=== PATIENT | male | born 1995 | race African-American/Black ===

== ENCOUNTER 2017-07-19 14:04 | Emergency (ER) | payer SELFPAY ==
[2017-07-19] MEDS ORDERED: ALBUTEROL 2.5 MG/3 ML NEB SOL ONE (14:32)
[2017-07-19] MEDS ORDERED: IPRATROPIUM BROM 0.5MG/2.5ML ONE (14:32)
--- NOTE | 2017-07-19 15:13 | RAD REPORT ---
EXAM DESCRIPTION: Kathrin Ji (2 Views)07/19/2017 3:00 pm CLINICAL HISTORY: Cough COMPARISON: 2012 FINDINGS: The lungs appear clear of acute infiltrate. The heart is normal size IMPRESSION: No acute abnormalities displayed
--- NOTE | 2017-07-19 15:37 | ER ---
Nurse's Notes [facility] Name: Manish Luis Jr Age: 21 yrs Sex: Male : 1995 Arrival Date: 07/19/2017 Time: 14:05 Bed 19 Private MD: Diagnosis: Acute upper respiratory infection, unspecified Presentation: 07/19 14:07 Presenting complaint: Patient states: sore throat for 2 days, diarrhea, cough, SOB for la1 one day. Transition of care: patient was not received from another setting of care. Onset of symptoms was July 19, 2017. Initial Sepsis Screen: Does the patient meet any 2 criteria? No. Patient's initial sepsis screen is negative. Does the patient have a suspected source of infection? No. Patient's initial sepsis screen is negative. Care prior to arrival: None. 14:07 Method Of Arrival: Ambulatory la1 14:07 Acuity: REYNA 4 la1 Historical: - Allergies: 14:08 PENICILLINS; la1 - Home Meds: 14:10 Albuterol Inhl [Active]; rb1 - PMHx: 14:08 Asthma; la1 - PSHx: 14:10 None; rb1 - Immunization history:: Adult Immunizations up to date. - Social history:: Smoking status: Patient/guardian denies using tobacco. Screenin:10 Abuse screen: Denies threats or abuse. Nutritional screening: No deficits noted. rb1 Tuberculosis screening: No symptoms or risk factors identified. Fall Risk None identified. Assessment: 14:10 General: Appears in no apparent distress. comfortable, slender, Behavior is calm, rb1 cooperative. Pain: Complains of pain in back Pain does not radiate. Pain currently is 2 out of 10 on a pain scale. Pain began 2 days. Neuro: Level of Consciousness is awake, alert, obeys commands, Oriented to person, place, time, situation. Cardiovascular: Capillary refill < 3 seconds is brisk in bilateral fingers. Respiratory: Airway is patent Respiratory effort is even, unlabored, Respiratory pattern is regular, symmetrical. GI: Reports diarrhea. : No signs and/or symptoms were reported regarding the genitourinary system. Derm: Skin is dry, Skin is normal, Skin temperature is warm. Musculoskeletal: Range of motion: intact in all extremities. 14:54 Reassessment: pt. went to X-ray. rb1 15:39 Reassessment: Patient appears in no apparent distress at this time. Patient and/or rb1 family updated on plan of care and expected duration. Pain level reassessed. Patient is alert, oriented x 3, equal unlabored respirations, skin warm/dry/pink. Vital Signs: 14:08 BP 123 / 74; Pulse 101; Resp 19; Temp 98.4; Pulse Ox 94% on R/A; Weight 58.97 kg; la1 Height 5 ft. 10 in. (177.80 cm); 14:54 rb1 15:04 BP 117 / 101; Pulse 99; Resp 19; Pulse Ox 100% on R/A; rb1 15:49 BP 105 / 81; Pulse 98; Resp 16; Pulse Ox 100% on R/A; rb1 14:08 Body Mass Index 18.65 (58.97 kg, 177.80 cm) la1 14:54 pt. went to x-ray [facility] ED Course: 14:05 Patient arrived in ED. as 14:07 Triage completed. la1 14:08 Arm band placed on right wrist. la1 14:10 Patient has correct armband on for positive identification. Bed in low position. Call rb1 light in reach. Side rails up X 1. Pulse ox on. NIBP on. 14:11 Valentina Elizadle, RN is Primary Nurse. rb1 14:11 Sumit Suresh PA is PHCP. cp 14:11 Jam Saeed MD is Attending Physician. cp 14:30 Strep Sent. rb1 14:30 Influenza Screen (a \T\ B) Sent. rb1 14:41 Note: PATIENT RECEIVING BREATHING TREATMENT, X RAY DELAYED. kp1 14:56 Patient moved to radiology via wheelchair. ag1 14:57 XRAY Chest Pa And Lat (2 Views) In Process Unspecified. EDMS 15:49 No provider procedures requiring assistance completed. Patient did not have IV access rb1 during this emergency room visit. 15:55 Throat Culture Sent. rb1 Administered Medications: 14:36 Drug: Albuterol 2.5 mg Route: Inhalation; rb1 14:36 Drug: AtroVENT Aerosol 0.5 mg Route: Inhalation; rb1 Outcome: 15:36 Discharge ordered by . cp 15:49 Patient left the ED. rb1 15:49 Discharged to home ambulatory, with significant other. rb1 15:49 Condition: stable 15:49 Discharge instructions given to patient, Instructed on discharge instructions, follow up and referral plans. medication usage, Demonstrated understanding of instructions, follow-up care, medications, Prescriptions given X 3. Signatures: Dispatcher [employer] Margarita Quevedo Lee RN RN la1 Rica Mansfield ag1 Sumit Suresh PA PA cp Barber, Rebecca, RN RN rb1 Aimee, Nicole kp1
--- NOTE | 2017-07-19 15:37 | EDPHYS ---
Physician Documentation [facility] Name: Manish Luis Jr Age: 21 yrs Sex: Male : 1995 Arrival Date: 07/19/2017 Time: 14:05 Bed 19 Private MD: ED Physician Jam Saeed HPI: 07/19 14:25 This 21 yrs old Black Male presents to ER via Ambulatory with complaints of Flu cp Symptoms, Asthma Exacerbation. 14:25 The patient or guardian reports cough, that is intermittent. Onset: The cp symptoms/episode began/occurred 2 day(s) ago. Associated signs and symptoms: Pertinent positives: diarrhea, sore throat, shortness of breath, Pertinent negatives: chest pain, fever, vomiting. 14:25 Severity of symptoms: in the emergency department the symptoms are unchanged despite cp home interventions. Historical: - Allergies: 14:08 PENICILLINS; la1 - Home Meds: 14:10 Albuterol Inhl [Active]; rb1 - PMHx: 14:08 Asthma; la1 - PSHx: 14:10 None; rb1 - Immunization history:: Adult Immunizations up to date. - Social history:: Smoking status: Patient/guardian denies using tobacco. ROS: 14:30 Constitutional: Negative for body aches, chills, fever, poor PO intake. cp 14:30 Eyes: Negative for injury, pain, redness, and discharge. cp 14:30 ENT: Positive for rhinorrhea, sore throat, Negative for drainage from ear(s), ear pain, difficulty swallowing, difficulty handling secretions. 14:30 Cardiovascular: Negative for chest pain, edema. 14:30 Skin: Negative for cellulitis, rash. 14:30 Neuro: Negative for altered mental status, headache, weakness. 14:30 Respiratory: Positive for cough, shortness of breath. cp 14:30 Abdomen/GI: Positive for diarrhea, Negative for abdominal pain, nausea and vomiting, cp constipation. 14:30 All other systems are negative. Exam: 14:38 Constitutional: The patient appears in no acute distress, alert, awake, non-toxic, well cp developed, well nourished. 14:38 Head/Face: Normocephalic, atraumatic. cp 14:38 Eyes: Periorbital structures: appear normal, Conjunctiva: normal, no exudate, no injection, Sclera: no appreciated abnormality, Lids and lashes: appear normal, bilaterally. 14:38 ENT: External ear(s): are unremarkable, Ear canal(s): are normal, clear, TM's: dullness, bilaterally, Nose: is normal, Mouth: Lips: moist, Oral mucosa: moist, Posterior pharynx: Airway: no evidence of obstruction, patent, Tonsils: with erythema, no enlargement, no exudate, Uvula: midline, swelling, is not appreciated, erythema, that is mild, exudate, is not appreciated. 14:38 Neck: ROM/movement: is normal, is supple, without pain, no range of motions limitations, no meningismus, no nuchal rigidity, Lymph nodes: no appreciated lymphadenopathy. 14:38 Chest/axilla: Inspection: normal, Palpation: is normal, no crepitus, no tenderness. 14:38 Cardiovascular: Rate: tachycardic, Rhythm: regular. 14:38 Respiratory: the patient does not display signs of respiratory distress, Respirations: normal, no use of accessory muscles, no retractions, no splinting, no tachypnea, labored breathing, is not present, Breath sounds: bronchial sounds, that are mild, are heard diffusely, decreased breath sounds, that are mild, are scattered, stridor, is not appreciated, wheezing: is not appreciated. 14:38 Abdomen/GI: Exam negative for discomfort, distension, guarding, Inspection: abdomen appears normal. 14:38 Back: pain, is absent, ROM is normal. 14:38 Skin: cellulitis, is not appreciated, no rash present. 14:38 Neuro: Orientation: to person, place \T\ time. Mentation: is normal, Cerebellar function: is grossly normal, Motor: is normal, Sensation: is normal. Vital Signs: 14:08 BP 123 / 74; Pulse 101; Resp 19; Temp 98.4; Pulse Ox 94% on R/A; Weight 58.97 kg; la1 Height 5 ft. 10 in. (177.80 cm); 14:54 rb1 15:04 BP 117 / 101; Pulse 99; Resp 19; Pulse Ox 100% on R/A; rb1 15:49 BP 105 / 81; Pulse 98; Resp 16; Pulse Ox 100% on R/A; rb1 14:08 Body Mass Index 18.65 (58.97 kg, 177.80 cm) la1 14:54 pt. went to x-ray rb1 MDM: 14:11 Patient medically screened. cp 15:00 Differential diagnosis: bronchitis, flu, URI. cp 15:35 Data reviewed: vital signs, nurses notes, lab test result(s), radiologic studies, plain cp films. 15:35 Test interpretation: by ED physician or midlevel provider: plain radiologic studies. cp Counseling: I had a detailed discussion with the patient and/or guardian regarding: the historical points, exam findings, and any diagnostic results supporting the discharge/admit diagnosis, lab results, radiology results, to return to the emergency department if symptoms worsen or persist or if there are any questions or concerns that arise at home. Response to treatment: the patient's symptoms have mildly improved after treatment, and as a result, I will discharge patient. 07/19 14:19 Order name: Influenza Screen (a \T\ B); Complete Time: 15:03 07/19 15:03 Interpretation: Reviewed. 07/19 14:19 Order name: Strep; Complete Time: 15:03 07/19 15:35 Interpretation: Reviewed. 07/19 14:19 Order name: XRAY Chest Pa And Lat (2 Views); Complete Time: 15:34 07/19 14:59 Order name: Throat Culture EDMS Administered Medications: 14:36 Drug: Albuterol 2.5 mg Route: Inhalation; rb1 14:36 Drug: AtroVENT Aerosol 0.5 mg Route: Inhalation; rb1 Disposition: 07/19/17 15:36 Discharged to Home. Impression: Acute upper respiratory infection, unspecified. - Condition is Stable. - Discharge Instructions: Upper Respiratory Infection, Adult. - Prescriptions for Tessalon Perles 100 mg Oral Capsule - take 1 capsule by ORAL route every 8 hours As needed; 15 capsule. Prednisone 20 mg Oral Tablet - take 2 tablet by ORAL route once daily for 5 days; 10 tablet. Albuterol Sulfate 90 mcg/actuation - inhale 1-2 puff by INHALATION route every 4-6 hours; 1 Inhaler. - Medication Reconciliation Form, Thank You Letter, Antibiotic Education, Prescription Opioid Use, Work release form form. - Follow up: Private Physician; When: 2 - 3 days; Reason: Recheck today's complaints. - Problem is new. - Symptoms have improved. Signatures: Dispatcher [employer] Francis Arndt RN RN la1 Sumit Suresh PA PA cp Barber, Rebecca RN RN rb1 Corrections: (The following items were deleted from the chart) 07/20 12:07/19 14:30 Respiratory: Positive for cough, cp cp 07/21 11:07/19 14:30 Abdomen/GI: Negative for abdominal pain, vomiting, diarrhea, constipation, cp cp 07/21 11:07/19 14:30 All other systems are negative, cp cp
== END 2017-07-19 15:49 | disposition home or self-care (01) ==
LOC: ER 14:04
DX: J06.9 Acute upper respiratory infection, unspecified (principal); J45.909 Unspecified asthma, uncomplicated; Z88.0 Allergy status to penicillin
CPT/HCPCS: 71046; 87070; 87081; 87804; 99284

== ENCOUNTER 2018-01-16 20:13 | Emergency (ER) | payer SELFPAY ==
--- NOTE | 2018-01-16 21:20 | RAD REPORT ---
EXAM DESCRIPTION: RAD - Chest Pa And Lat (2 Views) - 01/16/2018 8:41 pm CLINICAL HISTORY: Productive cough, asthma history, congestion COMPARISON: July 19 TECHNIQUE: PA and lateral views of the chest were obtained. FINDINGS: The lungs are clear of a focal consolidation. No significant peribronchial thickening. Darren g markings are similar to comparison. Heart size is normal and central vasculature is within normal limits. No pleural effusion or pneumothorax seen. No acute bony finding noted. No aortic abnormal ity. IMPRESSION: No acute cardiopulmonary process. No significant interval change.
[2018-01-16] MEDS ORDERED: IPRATROPIUM BROM 0.5MG/2.5ML ONE (21:40)
[2018-01-16] MEDS ORDERED: predniSONE 20 MG TAB ONE ×2 (21:40→22:53)
[2018-01-16] MEDS ORDERED: AZITHROMYCIN 250 MG TAB ONE (21:40)
[2018-01-16] MEDS ORDERED: ALBUTEROL 2.5 MG/3 ML NEB SOL ONE ×2 (21:40→22:53)
--- NOTE | 2018-01-16 22:48 | EDPHYS ---
Physician Documentation [facility] Name: Manish Luis Jr Age: 22 yrs Sex: Male : 1995 Arrival Date: 01/16/2018 Time: 20:15 Bed 25 Private MD: ED Physician Sumit Qiu HPI: 01/16 22:42 This 22 yrs old Black Male presents to ER via Ambulatory with complaints of ASTHMA. dory 22:42 The patient has shortness of breath at rest, with light activity. Onset: The dory symptoms/episode began/occurred 3 day(s) ago. Duration: The symptoms are continuous, and are steadily getting worse. The patient's shortness of breath has no apparent modifying factors. The patient or guardian reports cough. Modifying factors: The symptoms are alleviated by nothing. the symptoms are aggravated by cold environment. Associated signs and symptoms: The patient has no apparent associated signs or symptoms. Severity of symptoms: At their worst the symptoms were mild moderate in the emergency department the symptoms are unchanged. Historical: - Allergies: 20:25 PENICILLINS; ak1 - Home Meds: 20:25 Albuterol Inhl [Active]; ak1 - PMHx: 20:25 Asthma; ak1 - PSHx: 20:25 None; ak1 - Immunization history:: Adult Immunizations unknown. - Social history:: Smoking status: Patient/guardian denies using tobacco. - Ebola Screening: : No symptoms or risks identified at this time. - Family history:: not pertinent. ROS: 22:42 Constitutional: Negative for fever, chills, and weight loss, Eyes: Negative for injury, dory pain, redness, and discharge, ENT: Negative for injury, pain, and discharge, Neck: Negative for injury, pain, and swelling, Cardiovascular: Negative for chest pain, palpitations, and edema, Abdomen/GI: Negative for abdominal pain, nausea, vomiting, diarrhea, and constipation, Back: Negative for injury and pain, : Negative for injury, bleeding, discharge, and swelling, MS/Extremity: Negative for injury and deformity, Skin: Negative for injury, rash, and discoloration, Neuro: Negative for headache, weakness, numbness, tingling, and seizure, Psych: Negative for depression, anxiety, suicide ideation, homicidal ideation, and hallucinations, Allergy/Immunology: Negative for hives, rash, and allergies, Endocrine: Negative for neck swelling, polydipsia, polyuria, polyphagia, and marked weight changes, Hematologic/Lymphatic: Negative for swollen nodes, abnormal bleeding, and unusual bruising. 22:42 Respiratory: Positive for cough, shortness of breath, wheezing, expiratory. Exam: 22:42 Constitutional: This is a well developed, well nourished patient who is awake, alert, dory and in no acute distress. Head/Face: Normocephalic, atraumatic. Eyes: Pupils equal round and reactive to light, extra-ocular motions intact. Lids and lashes normal. Conjunctiva and sclera are non-icteric and not injected. Cornea within normal limits. Periorbital areas with no swelling, redness, or edema. ENT: Nares patent. No nasal discharge, no septal abnormalities noted. Tympanic membranes are normal and external auditory canals are clear. Oropharynx with no redness, swelling, or masses, exudates, or evidence of obstruction, uvula midline. Mucous membranes moist. Neck: Trachea midline, no thyromegaly or masses palpated, and no cervical lymphadenopathy. Supple, full range of motion without nuchal rigidity, or vertebral point tenderness. No Meningismus. Chest/axilla: Normal chest wall appearance and motion. Nontender with no deformity. No lesions are appreciated. Cardiovascular: Regular rate and rhythm with a normal S1 and S2. No gallops, murmurs, or rubs. Normal PMI, no JVD. No pulse deficits. Abdomen/GI: Soft, non-tender, with normal bowel sounds. No distension or tympany. No guarding or rebound. No evidence of tenderness throughout. Back: No spinal tenderness. No costovertebral tenderness. Full range of motion. Male : Normal genitalia with no discharge or lesions. Skin: Warm, dry with normal turgor. Normal color with no rashes, no lesions, and no evidence of cellulitis. MS/ Extremity: Pulses equal, no cyanosis. Neurovascular intact. Full, normal range of motion. Neuro: Awake and alert, GCS 15, oriented to person, place, time, and situation. Cranial nerves II-XII grossly intact. Motor strength 5/5 in all extremities. Sensory grossly intact. Cerebellar exam normal. Normal gait. Psych: Awake, alert, with orientation to person, place and time. Behavior, mood, and affect are within normal limits. 22:42 Respiratory: the patient does not display signs of respiratory distress, Respirations: normal, no acute changes, Breath sounds: bronchial sounds, decreased breath sounds, rhonchi, wheezing: expiratory Respiratory rate: 20 Vital Signs: 20:25 BP 138 / 80; Pulse 78; Resp 18; Temp 97.8; Pulse Ox 98% on R/A; Weight 63.5 kg (R); ak1 Height 5 ft. 9 in. (175.26 cm) (R); Pain 0/10; 22:51 BP 125 / 78; Pulse 58; Resp 18; Pulse Ox 100% on R/A; Pain 0/10; mg2 23:28 BP 120 / 80; Pulse 78; Resp 18; Pulse Ox 100% on R/A; mg2 20:25 Body Mass Index 20.67 (63.50 kg, 175.26 cm) ak1 MDM: 21:23 Patient medically screened. [facility] 22:44 Data reviewed: vital signs, nurses notes, radiologic studies, plain films. [facility] 01/16 20:26 Order name: XRAY Chest Pa And Lat (2 Views); Complete Time: 22:41 ak1 Administered Medications: 21:37 Drug: Albuterol 5 mg Route: Inhalation; mg2 23:28 Follow up: Response: No adverse reaction; Marked relief of symptoms mg2 21:37 Drug: AtroVENT Aerosol 0.5 mg Route: Inhalation; mg2 23:28 Follow up: Response: No adverse reaction; Marked relief of symptoms mg2 21:37 Drug: predniSONE 40 mg Route: PO; mg2 23:27 Follow up: Response: No adverse reaction; Marked relief of symptoms mg2 21:37 Drug: Zithromax 500 mg Route: PO; mg2 23:27 Follow up: Response: No adverse reaction; Marked relief of symptoms mg2 22:49 Drug: predniSONE 20 mg Route: PO; mg2 23:27 Follow up: Response: No adverse reaction; Marked relief of symptoms mg2 22:50 Drug: Albuterol 5 mg Route: Inhalation; mg2 23:27 Follow up: Response: No adverse reaction; Marked relief of symptoms mg2 23:02 Drug: Rocephin (cefTRIAXone) 1 grams Route: IM; Site: left gluteus; mg2 23:27 Follow up: Response: No adverse reaction mg2 Disposition: 01/16/18 22:47 Discharged to Home. Impression: Asthma, Acute upper respiratory infection, unspecified, Bronchitis, not specified as acute or chronic. - Condition is Stable. - Discharge Instructions: Acute Bronchitis, Adult, Asthma, Adult, How to Use an Inhaler, Upper Respiratory Infection, Adult, Cool Mist Vaporizer, Upper Respiratory Infection, Adult, [id number], Asthma, Adult, [id number], Cough, Adult. - Prescriptions for Albuterol Sulfate 2.5 mg /3 mL (0.083 %) Inhalation Solution for Nebulization - inhale 1 unit by NEBULIZATION route every 8 hours As needed; 1 box. Prednisone 20 mg Oral Tablet - take 2 tablet by ORAL route once daily for 5 days; 10 tablet. Albuterol Sulfate 90 mcg/actuation - inhale 1-2 puff by INHALATION route every 4-6 hours; 1 Inhaler. Zithromax 500 mg Oral Tablet - take 1 tablet by ORAL route once daily for 5 days; 5 tablet. - Medication Reconciliation Form, Thank You Letter, Antibiotic Education, Prescription Opioid Use form. - Follow up: Private Physician; When: 2 - 3 days; Reason: Recheck today's complaints, Continuance of care, Re-evaluation by your physician. - Problem is new. - Symptoms have improved. Signatures: Dispatcher [employer] EDSumit Chapin MD MD cha Krenek, Amber RN RN ak1 Curt Parker RN RN mg2 Corrections: (The following items were deleted from the chart) 23:29 22:47 01/16/2018 22:47 Discharged to Home. Impression: Asthma; Acute upper respiratory mg2 infection, unspecified; Bronchitis, not specified as acute or chronic. Condition is Stable. Forms are Medication Reconciliation Form, Thank You Letter, Antibiotic Education, Prescription Opioid Use. Follow up: Private Physician; When: 2 - 3 days; Reason: Recheck today's complaints, Continuance of care, Re-evaluation by your physician. Problem is new. Symptoms have improved. dory
--- NOTE | 2018-01-16 22:48 | ER ---
Nurse's Notes [facility] Name: Manish Luis Jr Age: 22 yrs Sex: Male : 1995 Arrival Date: 01/16/2018 Time: 20:15 Bed 25 Private MD: Diagnosis: Asthma;Acute upper respiratory infection, unspecified;Bronchitis, not specified as acute or chronic Presentation: 01/16 20:24 Presenting complaint: Patient states: productive cough X2 days [employer]. pt c/o SOB today. ak1 Transition of care: patient was not received from another setting of care. Onset of symptoms is unknown. Risk Assessment: Do you want to hurt yourself or someone else? Patient reports no desire to harm self or others. Initial Sepsis Screen: Does the patient meet any 2 criteria? No. Patient's initial sepsis screen is negative. Does the patient have a suspected source of infection? No. Patient's initial sepsis screen is negative. Care prior to arrival: None. 20:24 Method Of Arrival: Ambulatory ak1 20:24 Acuity: REYNA 3 ak1 Triage Assessment: 20:25 General: Appears in no apparent distress. Behavior is calm, cooperative, no resp ak1 distress noted in triage. . 20:26 Pain: Denies pain. ak1 Historical: - Allergies: 20:25 PENICILLINS; ak1 - Home Meds: 20:25 Albuterol Inhl [Active]; ak1 - PMHx: 20:25 Asthma; ak1 - PSHx: 20:25 None; ak1 - Immunization history:: Adult Immunizations unknown. - Social history:: Smoking status: Patient/guardian denies using tobacco. - Ebola Screening: : No symptoms or risks identified at this time. - Family history:: not pertinent. Screenin:26 Abuse screen: Denies threats or abuse. Denies injuries from another. Nutritional ak1 screening: No deficits noted. Tuberculosis screening: No symptoms or risk factors identified. Fall Risk None identified. Assessment: 22:30 General: Appears in no apparent distress. comfortable, Behavior is calm, cooperative. mg2 Respiratory: Airway is patent Respiratory effort is even, unlabored, Respiratory pattern is regular, symmetrical, Breath sounds with wheezes. 23:25 Pain: Denies pain. mg2 23:26 Reassessment: Patient appears in no apparent distress at this time. Patient and/or mg2 family updated on plan of care and expected duration. Pain level reassessed. Patient is alert, oriented x 3, equal unlabored respirations, skin warm/dry/pink. Respiratory: Breath sounds are clear. Vital Signs: 20:25 BP 138 / 80; Pulse 78; Resp 18; Temp 97.8; Pulse Ox 98% on R/A; Weight 63.5 kg (R); ak1 Height 5 ft. 9 in. (175.26 cm) (R); Pain 0/10; 22:51 BP 125 / 78; Pulse 58; Resp 18; Pulse Ox 100% on R/A; Pain 0/10; mg2 23:28 BP 120 / 80; Pulse 78; Resp 18; Pulse Ox 100% on R/A; mg2 20:25 Body Mass Index 20.67 (63.50 kg, 175.26 cm) ak1 ED Course: 20:15 Patient arrived in ED. es 20:25 Triage completed. ak1 20:25 Arm band placed on Patient placed in waiting room, Patient notified of wait time. ak1 20:26 Patient has correct armband on for positive identification. ak1 20:40 XRAY Chest Pa And Lat (2 Views) In Process Unspecified. EDMS 21:19 Sumit Qiu MD is Attending Physician. dory 21:19 Curt Parker, SANYA is Primary Nurse. mg2 23:26 No provider procedures requiring assistance completed. Patient did not have IV access mg2 during this emergency room visit. Administered Medications: 21:37 Drug: Albuterol 5 mg Route: Inhalation; mg2 23:28 Follow up: Response: No adverse reaction; Marked relief of symptoms mg2 21:37 Drug: AtroVENT Aerosol 0.5 mg Route: Inhalation; mg2 23:28 Follow up: Response: No adverse reaction; Marked relief of symptoms mg2 21:37 Drug: predniSONE 40 mg Route: PO; mg2 23:27 Follow up: Response: No adverse reaction; Marked relief of symptoms mg2 21:37 Drug: Zithromax 500 mg Route: PO; mg2 23:27 Follow up: Response: No adverse reaction; Marked relief of symptoms mg2 22:49 Drug: predniSONE 20 mg Route: PO; mg2 23:27 Follow up: Response: No adverse reaction; Marked relief of symptoms mg2 22:50 Drug: Albuterol 5 mg Route: Inhalation; mg2 23:27 Follow up: Response: No adverse reaction; Marked relief of symptoms mg2 23:02 Drug: Rocephin (cefTRIAXone) 1 grams Route: IM; Site: left gluteus; mg2 23:27 Follow up: Response: No adverse reaction mg2 Outcome: 22:47 Discharge ordered by . dory 23:28 Discharged to home ambulatory, with family. mg2 23:28 Condition: stable 23:28 Discharge instructions given to patient, family, Instructed on discharge instructions, follow up and referral plans. medication usage, Demonstrated understanding of instructions, follow-up care, medications, Prescriptions given X 4. 23:29 Patient left the ED. mg2 Signatures: Dispatcher [employer] EDAR Sumit Qiu MD MD cha Salyer, Shivani Rock RN RN ak1 Curt Parker RN RN mg2
[2018-01-16] MEDS ORDERED: WATER FOR INJ,STERILE 10 ML ONE (23:00)
[2018-01-16] MEDS ORDERED: CEFTRIAXONE 1000 MG/VIAL ONE (23:00)
== END 2018-01-16 23:29 | disposition home or self-care (01) ==
LOC: ER 20:13
DX: J06.9 Acute upper respiratory infection, unspecified (principal); J40 Bronchitis, not specified as acute or chronic; J45.909 Unspecified asthma, uncomplicated; Z88.0 Allergy status to penicillin
CPT/HCPCS: 71046; 96372; 99284; J7512

== ENCOUNTER 2019-06-20 17:32 | Emergency (ER) | payer SELFPAY ==
--- NOTE | 2019-06-20 18:11 | ER ---
Nurse's Notes [facility] Name: Manish Luis Jr Age: 23 yrs Sex: Male : 1995 Arrival Date: 06/20/2019 Time: 17:33 Bed 6 Private MD: Diagnosis: Acute pharyngitis Presentation: 06/19 17:43 Chief complaint: Patient states: SORE THROAT x2 DAY. Coronavirus screen: Patient denies bp fever greater than 100.4F, cough, shortness of breath, or difficulty breathing. Ebola Screen: No symptoms or risks identified at this time. Initial Sepsis Screen: Does the patient meet any 2 criteria? No. Patient's initial sepsis screen is negative. Does the patient have a suspected source of infection? No. Patient's initial sepsis screen is negative. Risk Assessment: Do you want to hurt yourself or someone else? Patient reports no desire to harm self or others. 17:43 Method Of Arrival: Ambulatory bp 17:43 Acuity: REYNA 5 bp Triage Assessment: 17:46 General: Appears in no apparent distress. comfortable, Behavior is calm, cooperative, bp appropriate for age. Pain: Denies pain. EENT: Reports pain when swallowing. Neuro: No deficits noted. Cardiovascular: No deficits noted. Respiratory: No deficits noted. GI: No signs and/or symptoms were reported involving the gastrointestinal system. : No signs and/or symptoms were reported regarding the genitourinary system. Derm: No deficits noted. Musculoskeletal: No deficits noted. Historical: - Allergies: 17:46 PENICILLINS; bp - Home Meds: 17:46 Albuterol Inhl [Active]; bp - PMHx: 17:46 Asthma; bp - Immunization history:: Adult Immunizations up to date. - Social history:: Smoking status: Patient denies any tobacco usage or history of. Screenin:48 Abuse screen: Denies threats or abuse. Denies injuries from another. Nutritional bp screening: No deficits noted. Tuberculosis screening: No symptoms or risk factors identified. Fall Risk None identified. Assessment: 17:47 General: SEE TRIAGE NOTE. Respiratory: Airway is patent Respiratory effort is even, bp unlabored, Breath sounds are clear bilaterally. EENT: Throat is reddened bilaterally. 18:16 Reassessment: PT D/C HOME AMBULATORY, DX WITH PHARYNGITIS. bp Vital Signs: 17:43 BP 128 / 81; Pulse 95; Resp 16; Temp 98.8; Pulse Ox 100% ; Weight 72.57 kg; Height 5 bp ft. 8 in. (172.72 cm); 18:15 BP 117 / 78; Pulse 90; Resp 17; Pulse Ox 99% ; bp 17:43 Body Mass Index 24.33 (72.57 kg, 172.72 cm) bp ED Course: 17:33 Patient arrived in ED. as 17:40 Taiwo Villalpando, RN is Primary Nurse. bp 17:45 Triage completed. bp 17:47 Arm band placed on. bp 17:48 Nicolás Nur NP is PHCP. pm1 17:48 Bob Oden MD is Attending Physician. pm1 17:48 Patient has correct armband on for positive identification. Bed in low position. Call bp light in reach. Side rails up X2. 18:16 No provider procedures requiring assistance completed. Patient did not have IV access bp during this emergency room visit. Administered Medications: No medications were administered Outcome: 18:10 Discharge ordered by MD. pm1 18:16 Discharged to home ambulatory. bp 18:16 Condition: stable 18:16 Discharge instructions given to patient, Instructed on discharge instructions, follow up and referral plans. medication usage, Demonstrated understanding of instructions, follow-up care, medications, Prescriptions given X 1. 18:20 Patient left the ED. bp Signatures: Margarita Adamson as Nicolás Nur NP [employer] ASSEMBLER pm1 Taiwo Villalpando, RN RN bp
--- NOTE | 2019-06-20 18:11 | EDPHYS ---
Physician Documentation [facility] Name: Manish Luis Jr Age: 23 yrs Sex: Male : 1995 Arrival Date: 06/20/2019 Time: 17:33 Bed 6 Private MD: ED Physician Bob Oden HPI: 06/19 18:09 This 23 yrs old Black Male presents to ER via Ambulatory with complaints of Sore Throat.pm1 18:09 The patient presents with sore throat. The patient describes throat pain as raw, pm1 scratchy. Onset: The symptoms/episode began/occurred 2 day(s) ago. Severity of symptoms: in the emergency department the symptoms are actually worse. Modifying factors: The symptoms are alleviated by over the counter medications, NSAIDs, Tylenol, the symptoms are aggravated by swallowing, Patient's oral intake status: good unaware of sick contact. Associated signs and symptoms: Pertinent positives: fever, Pertinent negatives cough, shortness of breath, vomiting. It is unknown whether or not the patient has recently seen a physician. Historical: - Allergies: 17:46 PENICILLINS; bp - Home Meds: 17:46 Albuterol Inhl [Active]; bp - PMHx: 17:46 Asthma; bp - Immunization history:: Adult Immunizations up to date. - Social history:: Smoking status: Patient denies any tobacco usage or history of. ROS: 18:09 Neck: Negative for injury, pain, and swelling, Cardiovascular: Negative for chest pain, pm1 palpitations, and edema, Respiratory: Negative for shortness of breath, cough, wheezing, and pleuritic chest pain, Abdomen/GI: Negative for abdominal pain, nausea, vomiting, diarrhea, and constipation, Back: Negative for injury and pain, MS/Extremity: Negative for injury and deformity, Skin: Negative for injury, rash, and discoloration, Neuro: Negative for headache, weakness, numbness, tingling, and seizure. 18:09 Constitutional: Positive for fever, Negative for poor PO intake. 18:09 ENT: Positive for sore throat, Negative for ear pain. Exam: 18:09 Constitutional: This is a well developed, well nourished patient who is awake, alert, pm1 and in no acute distress. Head/Face: Normocephalic, atraumatic. 18:09 Neck: Trachea midline, no thyromegaly or masses palpated, and no cervical lymphadenopathy. Supple, full range of motion without nuchal rigidity, or vertebral point tenderness. No Meningismus. Chest/axilla: Normal chest wall appearance and motion. Nontender with no deformity. No lesions are appreciated. Cardiovascular: Regular rate and rhythm with a normal S1 and S2. No gallops, murmurs, or rubs. Normal PMI, no JVD. No pulse deficits. Respiratory: Lungs have equal breath sounds bilaterally, clear to auscultation and percussion. No rales, rhonchi or wheezes noted. No increased work of breathing, no retractions or nasal flaring. Abdomen/GI: Soft, non-tender, with normal bowel sounds. No distension or tympany. No guarding or rebound. No evidence of tenderness throughout. Back: No spinal tenderness. No costovertebral tenderness. Full range of motion. Skin: Warm, dry with normal turgor. Normal color with no rashes, no lesions, and no evidence of cellulitis. MS/ Extremity: Pulses equal, no cyanosis. Neurovascular intact. Full, normal range of motion. 18:09 ENT: External ear(s): are unremarkable, Ear canal(s): are normal, TM's: are normal, Nose: is normal, Mouth: is normal, Posterior pharynx: Tonsils: bilaterally enlarged, with erythema, with exudate, no ulcerations, erythema, that is moderate, peritonsillar mass, is not appreciated, pooling of secretions, is not appreciated. 18:09 Neuro: Exam negative for acute changes, Orientation: is normal, Motor: moves all fours, Gait: is steady, at a normal pace, without difficulty. Vital Signs: 17:43 BP 128 / 81; Pulse 95; Resp 16; Temp 98.8; Pulse Ox 100% ; Weight 72.57 kg; Height 5 bp ft. 8 in. (172.72 cm); 18:15 BP 117 / 78; Pulse 90; Resp 17; Pulse Ox 99% ; bp 17:43 Body Mass Index 24.33 (72.57 kg, 172.72 cm) bp MDM: 18:04 Patient medically screened. pm1 18:09 Data reviewed: vital signs. Data interpreted: Pulse oximetry: on room air is 100 %. pm1 Interpretation: normal. Counseling: I had a detailed discussion with the patient and/or guardian regarding: the historical points, exam findings, and any diagnostic results supporting the discharge/admit diagnosis, the need for outpatient follow up, to return to the emergency department if symptoms worsen or persist or if there are any questions or concerns that arise at home. 06/19 18:09 Order name: Strep pm1 Administered Medications: No medications were administered Disposition: 18:31 Co-signature as Attending Physician, Bob Oden MD I agree with the assessment and kdr plan of care. Disposition: 06/20/19 18:10 Discharged to Home. Impression: Acute pharyngitis. - Condition is Stable. - Discharge Instructions: Pharyngitis. - Prescriptions for Zithromax Z- Horacio 250 mg Oral Tablet - take 1 tablet by ORAL route as directed for 5 days Day 1 - take two (2) tablets one time. Day 2, 3, 4 , 5 take one (1) tablet once daily.; 6 tablet. - Work release form, Medication Reconciliation Form, Thank You Letter, Antibiotic Education, Prescription Opioid Use form. - Follow up: Emergency Department; When: As needed; Reason: Worsening of condition. Follow up: Private Physician; When: 2 - 3 days; Reason: Recheck today's complaints, Continuance of care, Re-evaluation by your physician. - Problem is new. - Symptoms have improved. Signatures: Dispatcher [employer] EDMS Bob Oden MD MD [facility] Nicolás Nur, AUTOMATIC RIVETING MACHINE OPERATOR AUTOMATIC RIVETING MACHINE OPERATOR pm1 Taiwo Villalpando, RN RN bp Corrections: (The following items were deleted from the chart) 18:20 18:10 06/20/2019 18:10 Discharged to Home. Impression: Acute pharyngitis. Condition is bp Stable. Forms are Medication Reconciliation Form, Thank You Letter, Antibiotic Education, Prescription Opioid Use. Follow up: Emergency Department; When: As needed; Reason: Worsening of condition. Follow up: Private Physician; When: 2 - 3 days; Reason: Recheck today's complaints, Continuance of care, Re-evaluation by your physician. Problem is new. Symptoms have improved. pm1
[2019-06-20 18:27] VITALS: TEMP 98.8
[2019-06-20 18:28] VITALS: BP 117/78; O2SAT 99
== END 2019-06-20 18:20 | disposition home or self-care (01) ==
LOC: ER 17:32
DX: J02.9 Acute pharyngitis, unspecified (principal); Z88.0 Allergy status to penicillin; J45.909 Unspecified asthma, uncomplicated
CPT/HCPCS: 87070; 87081; 99282

== ENCOUNTER 2019-12-16 09:16 | Emergency (ER) | payer SELFPAY ==
--- NOTE | 2019-12-16 09:52 | ER ---
Nurse's Notes [facility] Name: Manish Luis Jr Age: 24 yrs Sex: Male : 1995 Arrival Date: 12/16/2019 Time: :19 Bed 6 Private MD: Diagnosis: Acute pharyngitis Presentation: 12/15 09:38 Chief complaint: Patient states: sore throat X 2 days, fever at night. Coronavirus iw screen: At this time, the client does not indicate any symptoms associated with coronavirus-19. Ebola Screen: Patient negative for fever greater than or equal to 101.5 degrees Fahrenheit, and additional compatible Ebola Virus Disease symptoms Patient denies exposure to infectious person. Patient denies travel to an Ebola-affected area in the 21 days before illness onset. No symptoms or risks identified at this time. Initial Sepsis Screen: Does the patient meet any 2 criteria? No. Patient's initial sepsis screen is negative. Does the patient have a suspected source of infection? No. Patient's initial sepsis screen is negative. Risk Assessment: Do you want to hurt yourself or someone else? Patient reports no desire to harm self or others. Onset of symptoms was December 14, 2019. 09:38 Method Of Arrival: Ambulatory iw 09:38 Acuity: REYNA 4 iw Historical: - Allergies: 09:39 PENICILLINS; iw - Home Meds: 09:39 Albuterol Inhl [Active]; iw - PMHx: 09:39 Asthma; iw - PSHx: 09:39 None; iw - Immunization history:: Adult Immunizations not up to date. - Social history:: Smoking status: Patient reports the use of cigarette tobacco products, denies chronic smoking, but will smoke occasionally. Screenin:42 Abuse screen: Denies threats or abuse. Nutritional screening: No deficits noted. em Tuberculosis screening: No symptoms or risk factors identified. Fall Risk None identified. Assessment: 09:37 General: Appears in no apparent distress. comfortable, Behavior is calm, cooperative, em appropriate for age, Denies fever. Pain: Complains of pain in throat. Neuro: Level of Consciousness is awake, alert, obeys commands, Oriented to person, place, time, situation, Appropriate for age. Cardiovascular: Capillary refill < 3 seconds Patient's skin is warm and dry. Respiratory: Reports cough that is Airway is patent Respiratory effort is even, unlabored, Respiratory pattern is regular, symmetrical, Breath sounds are clear bilaterally. Denies shortness of breath. GI: Abdomen is flat. EENT: Oral mucosa is moist. Throat is clear is pink Reports difficulty swallowing since 2 days ago. Derm: Skin is intact, is healthy with good turgor, Skin is pink, warm \T\ dry. Musculoskeletal: Capillary refill < 3 seconds, Range of motion: intact in all extremities. 10:06 Reassessment: Patient appears in no apparent distress at this time. No changes from sv previously documented assessment. Patient and/or family updated on plan of care and expected duration. Pain level reassessed. Patient is alert, oriented x 3, equal unlabored respirations, skin warm/dry/pink. Vital Signs: 09:38 BP 110 / 78; Pulse 91; Resp 16; Temp 98.1; Pulse Ox 97% on R/A; Weight 81.65 kg; Height iw 5 ft. 10 in. (177.80 cm); 09:38 Body Mass Index 25.83 (81.65 kg, 177.80 cm) iw ED Course: 09:19 Patient arrived in ED. mr 09:22 Evette Newton FNP-C [facility]. kb 09:22 Bob Oden MD is Attending Physician. kb 09:26 Myriam Alfonso, SANYA is Primary Nurse. sv 09:37 Strep swab sent to lab. em 09:39 Triage completed. iw 09:40 Arm band placed on. iw 09:42 Patient has correct armband on for positive identification. Bed in low position. Call em light in reach. Pulse ox on. NIBP on. 10:06 No provider procedures requiring assistance completed. Patient did not have IV access sv during this emergency room visit. Administered Medications: 10:06 Drug: GI Cocktail without - (Maalox Suspension 30 ml, Lidocaine Liquid 2 % 15 sv ml) Route: PO; 10:06 Follow up: Response: Medication administered at discharge. sv Outcome: 09:52 Discharge ordered by . kb 10:06 Patient left the ED. sv 10:06 Discharged to home ambulatory. sv 10:06 Condition: stable 10:06 Discharge instructions given to patient, Instructed on discharge instructions, follow up and referral plans. Demonstrated understanding of instructions, follow-up care. Signatures: Evette Newton FNP-C FURNACE HELPER-Myriam Calles, RN RN Brett Ree mr Sid Burnett, RN RN Kaylene Singer RN RN iw
--- NOTE | 2019-12-16 09:52 | EDPHYS ---
Physician Documentation [facility] Name: Manish Luis Jr Age: 24 yrs Sex: Male : 1995 Arrival Date: 12/16/2019 Time: 09:19 Bed 6 Private MD: ED Physician Bob Oden HPI: 12/15 10:44 This 24 yrs old Black Male presents to ER via Ambulatory with complaints of Sore Throat.kb 10:44 The patient presents with sore throat. The patient describes throat pain as constant. kb Onset: The symptoms/episode began/occurred 2 day(s) ago. Severity of symptoms: At their worst the symptoms were moderate, in the emergency department the symptoms are unchanged. Modifying factors: The symptoms are alleviated by nothing, the symptoms are aggravated by swallowing, Patient's oral intake status: good Denies contact with similarly ill indivduals. Associated signs and symptoms: Pertinent positives: chills, Sore throat. The patient has not experienced similar symptoms in the past. The patient has not recently seen a physician. Historical: - Allergies: 09:39 PENICILLINS; iw - Home Meds: 09:39 Albuterol Inhl [Active]; iw - PMHx: 09:39 Asthma; iw - PSHx: 09:39 None; iw - Immunization history:: Adult Immunizations not up to date. - Social history:: Smoking status: Patient reports the use of cigarette tobacco products, denies chronic smoking, but will smoke occasionally. ROS: 10:43 Neck: Negative for injury, pain, and swelling, Cardiovascular: Negative for chest pain, kb palpitations, and edema, Respiratory: Negative for shortness of breath, cough, wheezing, and pleuritic chest pain, Abdomen/GI: Negative for abdominal pain, nausea, vomiting, diarrhea, and constipation, MS/Extremity: Negative for injury and deformity, Skin: Negative for injury, rash, and discoloration, Neuro: Negative for headache, weakness, numbness, tingling, and seizure. 10:43 Constitutional: Positive for chills, fever, Negative for body aches, fatigue, malaise, poor PO intake, weight loss. 10:43 ENT: Positive for sore throat. Exam: 10:43 Constitutional: This is a well developed, well nourished patient who is awake, alert, kb and in no acute distress. Head/Face: Normocephalic, atraumatic. Neck: Trachea midline, no thyromegaly or masses palpated, and no cervical lymphadenopathy. Supple, full range of motion without nuchal rigidity, or vertebral point tenderness. No Meningismus. Chest/axilla: Normal chest wall appearance and motion. Nontender with no deformity. No lesions are appreciated. Cardiovascular: Regular rate and rhythm with a normal S1 and S2. No gallops, murmurs, or rubs. Normal PMI, no JVD. No pulse deficits. Respiratory: Lungs have equal breath sounds bilaterally, clear to auscultation and percussion. No rales, rhonchi or wheezes noted. No increased work of breathing, no retractions or nasal flaring. Abdomen/GI: Soft, non-tender, with normal bowel sounds. No distension or tympany. No guarding or rebound. No evidence of tenderness throughout. Skin: Warm, dry with normal turgor. Normal color with no rashes, no lesions, and no evidence of cellulitis. MS/ Extremity: Pulses equal, no cyanosis. Neurovascular intact. Full, normal range of motion. Neuro: Awake and alert, GCS 15, oriented to person, place, time, and situation. Cranial nerves II-XII grossly intact. Motor strength 5/5 in all extremities. Sensory grossly intact. Cerebellar exam normal. Normal gait. 10:43 ENT: Posterior pharynx: Airway: normal, no evidence of obstruction, Tonsils: are normal in appearance, Uvula: normal, midline, swelling, is not appreciated, erythema, that is mild. Vital Signs: 09:38 BP 110 / 78; Pulse 91; Resp 16; Temp 98.1; Pulse Ox 97% on R/A; Weight 81.65 kg; Height iw 5 ft. 10 in. (177.80 cm); 09:38 Body Mass Index 25.83 (81.65 kg, 177.80 cm) iw MDM: 09:26 Patient medically screened. kb 10:42 Data reviewed: vital signs, nurses notes. Data interpreted: Pulse oximetry: on room air kb is 97 %. Interpretation: normal. Counseling: I had a detailed discussion with the patient and/or guardian regarding: the historical points, exam findings, and any diagnostic results supporting the discharge/admit diagnosis, lab results, the need for outpatient follow up, a family practitioner, to return to the emergency department if symptoms worsen or persist or if there are any questions or concerns that arise at home. 12/15 09:30 Order name: Strep; Complete Time: 09:51 kb 12/15 09:51 Order name: Throat Culture EDMS Administered Medications: 10:06 Drug: GI Cocktail without - (Maalox Suspension 30 ml, Lidocaine Liquid 2 % 15 sv ml) Route: PO; 10:06 Follow up: Response: Medication administered at discharge. sv Disposition: 11:14 Co-signature as Attending Physician, Bob Oden MD I agree with the assessment and kdr plan of care. Disposition: 12/16/19 09:52 Discharged to Home. Impression: Acute pharyngitis. - Condition is Stable. - Discharge Instructions: Pharyngitis, [id number], Sore Throat, [id number]. - Medication Reconciliation Form, Thank You Letter, Antibiotic Education, Prescription Opioid Use form. - Follow up: Emergency Department; When: As needed; Reason: Worsening of condition. Follow up: Private Physician; When: 2 - 3 days; Reason: Recheck today's complaints, Continuance of care, Re-evaluation by your physician. Signatures: Dispatcher [employer] EDMS Evette Newton, YARI GOMEZP-Myriam Calles RN RN sv Rittger, Kevin, MD MD [facility] Kaylene Shay RN RN iw Corrections: (The following items were deleted from the chart) 10:06 09:52 12/16/2019 09:52 Discharged to Home. Impression: Acute pharyngitis. Condition is sv Stable. Forms are Medication Reconciliation Form, Thank You Letter, Antibiotic Education, Prescription Opioid Use. Follow up: Emergency Department; When: As needed; Reason: Worsening of condition. Follow up: Private Physician; When: 2 - 3 days; Reason: Recheck today's complaints, Continuance of care, Re-evaluation by your physician. kb
[2019-12-16] MEDS ORDERED: LIDOCAINE VISCOUS 2% SOLN 15 ML UDC ONE (10:06)
[2019-12-16] MEDS ORDERED: MAGNE/ALUM HYDROXD 30 ML UCUP ONE (10:06)
[2019-12-16 10:13] VITALS: BP 110/78; TEMP 98.1; O2SAT 97
== END 2019-12-16 10:06 | disposition home or self-care (01) ==
LOC: ER 09:16
DX: J02.9 Acute pharyngitis, unspecified (principal); J45.909 Unspecified asthma, uncomplicated; F17.210 Nicotine dependence, cigarettes, uncomplicated; Z88.0 Allergy status to penicillin
CPT/HCPCS: 87070; 87081; 99283

== ENCOUNTER 2020-04-18 05:26 | Emergency (ER) | payer SELFPAY ==
[2020-04-18] MEDS ORDERED: IPRATROPIUM BROM 0.5MG/2.5ML ONE (06:36)
[2020-04-18] MEDS ORDERED: ALBUTEROL 2.5 MG/3 ML NEB SOL ONE (06:36)
[2020-04-18] MEDS ORDERED: predniSONE 20 MG TAB ONE (06:36)
--- NOTE | 2020-04-18 06:49 | EDPHYS ---
Physician Documentation [facility] Name: Manish Luis Jr Age: 24 yrs Sex: Male : 1995 Arrival Date: 04/18/2020 Time: 05:29 Bed 8 Private MD: ED Physician Alex Cota HPI: 04/18 06:21 This 24 yrs old Black Male presents to ER via Ambulatory with complaints of Shortness ma2 Of Breath. 06:21 The patient has shortness of breath during heavy activity. Onset: The symptoms/episode ma2 began/occurred gradually, 2 day(s) ago. Associated signs and symptoms: Pertinent negatives: diaphoresis, fever, loss of consciousness, nausea. Severity of symptoms: At their worst the symptoms were moderate in the emergency department the symptoms are unchanged. The patient has experienced similar episodes in the past. Historical: - Allergies: 05:51 PENICILLINS; dm5 - Home Meds: 05:51 Albuterol Inhl [Active]; dm5 - PMHx: 05:51 Asthma; dm5 - PSHx: 05:51 None; dm5 - Immunization history:: Adult Immunizations up to date. - Social history:: Smoking status: Patient denies any tobacco usage or history of. Patient/guardian denies using alcohol, street drugs, The patient lives with spouse. - Family history:: not pertinent. ROS: 06:21 Constitutional: Negative for fever, chills, and weight loss. ma2 06:21 All other systems are negative. Exam: 06:21 Constitutional: This is a well developed, well nourished patient who is awake, alert, ma2 and in no acute distress. Head/Face: Normocephalic, atraumatic. ENT: Nares patent. No nasal discharge, no septal abnormalities noted. Tympanic membranes are normal and external auditory canals are clear. Oropharynx with no redness, swelling, or masses, exudates, or evidence of obstruction, uvula midline. Mucous membranes moist. Neck: Trachea midline, no thyromegaly or masses palpated, and no cervical lymphadenopathy. Supple, full range of motion without nuchal rigidity, or vertebral point tenderness. No Meningismus. Chest/axilla: Normal chest wall appearance and motion. Nontender with no deformity. No lesions are appreciated. Cardiovascular: Regular rate and rhythm with a normal S1 and S2. No gallops, murmurs, or rubs. Normal PMI, no JVD. No pulse deficits. Respiratory: wheezes bilaterally, clear to auscultation and percussion. No rales, rhonchi or wheezes noted. No increased work of breathing, no retractions or nasal flaring. Abdomen/GI: Soft, non-tender, with normal bowel sounds. No distension or tympany. No guarding or rebound. No evidence of tenderness throughout. Male : Normal genitalia with no discharge or lesions. Vital Signs: 05:49 Weight 69.85 kg; Height 5 ft. 10 in. (177.80 cm); dm5 05:50 BP 125 / 82; Pulse 58; Resp 18; Temp 97.9(O); Pulse Ox 98% on R/A; oe 07:47 BP 129 / 87; Pulse 82; Resp 14 S; Pulse Ox 98% on R/A; Pain 0/10; jl7 05:49 Body Mass Index 22.10 (69.85 kg, 177.80 cm) dm5 MDM: 05:44 Patient medically screened. [facility] 06:21 Differential diagnosis: asthma, Bronchitis reactive airway disease, Unstable Angina. [facility] 06:48 Data reviewed: vital signs, nurses notes. Counseling: I had a detailed discussion with [facility] the patient and/or guardian regarding: the historical points, exam findings, and any diagnostic results supporting the discharge/admit diagnosis, the presence of at least one elevated blood pressure reading (>120/80) during this emergency department visit, the need for outpatient follow up. Administered Medications: 06:20 Drug: Albuterol - atroVENT (3:1) (2.5 mg - 0.5 mg) 3 ml Route: Nebulizer; sg 06:49 Follow up: Response: No adverse reaction; Marked relief of symptoms 06:20 Drug: predniSONE 40 mg Route: PO; sg 06:49 Follow up: Response: No adverse reaction Disposition: 04/18/20 06:48 Discharged to Home. Impression: Asthma. - Condition is Stable. - Discharge Instructions: Asthma, Adult, [id number]. - Prescriptions for Medrol (Horacio) 4 mg Oral Tablets, Dose Pack - take 1 tablet by ORAL route as directed - follow package instructions; 1 packet. Albuterol Sulfate 90 mcg/actuation - inhale 1-2 puff by INHALATION route every 4-6 hours; 1 Inhaler. - Medication Reconciliation Form, Thank You Letter, Antibiotic Education, Prescription Opioid Use form. - Follow up: Private Physician; When: Tomorrow; Reason: Continuance of care. Signatures: Natalie Gomez, RN RN dm5 Rick Palacios RN RN sg Marce Alcocer RN RN jl7 Alex Cota MD MD ma2 Corrections: (The following items were deleted from the chart) 07:48 06:48 04/18/2020 06:48 Discharged to Home. Impression: Asthma. Condition is Stable. jl7 Prescriptions for Medrol (Horacio) 4 mg Oral Tablets, Dose Pack - take 1 tablet by ORAL route as directed - follow package instructions; 1 packet, Albuterol Sulfate 90 mcg/actuation - inhale 1-2 puff by INHALATION route every 4-6 hours; 1 Inhaler. and Forms are Medication Reconciliation Form, Thank You Letter, Antibiotic Education, Prescription Opioid Use. Follow up: Private Physician; When: Tomorrow; Reason: Continuance of care. ma2
--- NOTE | 2020-04-18 06:49 | ER ---
Nurse's Notes [facility] Name: Manish Luis Jr Age: 24 yrs Sex: Male : 1995 Arrival Date: 04/18/2020 Time: 05:29 Bed 8 Private MD: Diagnosis: Asthma Presentation: 04/18 05:49 Chief complaint: Patient states: I am here for my asthma. My machine broke. pt does dm5 nebulizer daily. Coronavirus screen: Client denies travel out of the [place] in the last 14 days. difficulty breathing, Client presents with at least one sign or symptom that may indicate coronavirus-19. Standard/surgical mask placed on the client. Ebola Screen: Patient negative for fever greater than or equal to 101.5 degrees Fahrenheit, and additional compatible Ebola Virus Disease symptoms Patient denies exposure to infectious person. Patient denies travel to an Ebola-affected area in the 21 days before illness onset. No symptoms or risks identified at this time. Initial Sepsis Screen: Does the patient meet any 2 criteria? No. Patient's initial sepsis screen is negative. Does the patient have a suspected source of infection? No. Patient's initial sepsis screen is negative. Risk Assessment: Do you want to hurt yourself or someone else? Patient reports no desire to harm self or others. Onset of symptoms. 05:49 Method Of Arrival: Ambulatory dm5 05:49 Acuity: REYNA 3 dm5 Triage Assessment: 05:51 General: Appears in no apparent distress. Behavior is calm, cooperative. Pain: Denies dm5 pain. Neuro: Level of Consciousness is awake, alert, obeys commands, Oriented to person, place, time. Cardiovascular: No deficits noted. Respiratory: Reports shortness of breath Airway is patent Respiratory effort is even, unlabored, Respiratory pattern is regular, symmetrical, Onset: The symptoms/episode began/occurred today, the patient has mild shortness of breath. GI: No signs and/or symptoms were reported involving the gastrointestinal system. : No signs and/or symptoms were reported regarding the genitourinary system. Derm: Skin is pink, warm \T\ dry. Historical: - Allergies: 05:51 PENICILLINS; dm5 - Home Meds: 05:51 Albuterol Inhl [Active]; dm5 - PMHx: 05:51 Asthma; dm5 - PSHx: 05:51 None; dm5 - Immunization history:: Adult Immunizations up to date. - Social history:: Smoking status: Patient denies any tobacco usage or history of. Patient/guardian denies using alcohol, street drugs, The patient lives with spouse. - Family history:: not pertinent. Screenin:20 Abuse screen: Denies threats or abuse. Denies injuries from another. Nutritional sg screening: No deficits noted. Tuberculosis screening: No symptoms or risk factors identified. Never had TB. Fall Risk None identified. Assessment: 06:20 General: Appears in no apparent distress. well groomed, well developed, well nourished, sg Behavior is calm, cooperative, appropriate for age. 06:20 Pain: Denies pain. 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 Full function Speech is normal, Facial symmetry appears normal. Cardiovascular: Patient's skin is warm and dry. Rhythm is atrial fibrillation Chest pain is denied. Respiratory: Airway is patent Respiratory effort is even, unlabored, Respiratory pattern is regular, symmetrical, Breath sounds with wheezes. GI: No signs and/or symptoms were reported involving the gastrointestinal system. : No signs and/or symptoms were reported regarding the genitourinary system. EENT: No signs and/or symptoms were reported regarding the EENT system. Derm: Skin is pink, warm \T\ dry. Musculoskeletal: Circulation, motion, and sensation intact. Range of motion: intact in all extremities. 06:52 Reassessment: Patient appears in no apparent distress at this time. awaiting Nebulizer sg tx to complete prior to discharge to home, awaiting to update pt prior to dc to home, pt stated understanding. 07:47 Reassessment: Patient appears in no apparent distress at this time. Patient and/or jl7 family updated on plan of care and expected duration. Pain level reassessed. Patient is alert, oriented x 3, equal unlabored respirations, skin warm/dry/pink. Patient states feeling better. Patient states symptoms have improved. Vital Signs: 05:49 Weight 69.85 kg; Height 5 ft. 10 in. (177.80 cm); dm5 05:50 BP 125 / 82; Pulse 58; Resp 18; Temp 97.9(O); Pulse Ox 98% on R/A; oe 07:47 BP 129 / 87; Pulse 82; Resp 14 S; Pulse Ox 98% on R/A; Pain 0/10; jl7 05:49 Body Mass Index 22.10 (69.85 kg, 177.80 cm) 5 ED Course: 05:29 Patient arrived in ED. ag3 05:44 Alex Cota MD is Attending Physician. wv2 05:51 Triage completed. 5 05:51 Arm band placed on Patient placed in an exam room, on a stretcher. 5 06:16 Rick Palacios, RN is Primary Nurse. sg 06:20 No provider procedures requiring assistance completed. sg 07:00 Patient has correct armband on for positive identification. Bed in low position. Call jl7 light in reach. Side rails up X 1. Pulse ox on. NIBP on. 07:22 Primary Nurse role handed off by Rick Palacios, SANYA [facility] 07:47 Marce Alcocer RN is Primary Nurse. 7 07:48 Patient did not have IV access during this emergency room visit. 7 Administered Medications: 06:20 Drug: Albuterol - atroVENT (3:1) (2.5 mg - 0.5 mg) 3 ml Route: Nebulizer; sg 06:49 Follow up: Response: No adverse reaction; Marked relief of symptoms sg 06:20 Drug: predniSONE 40 mg Route: PO; sg 06:49 Follow up: Response: No adverse reaction sg Outcome: 06:[address] . [facility] 07:48 Discharged to home ambulatory. 7 07:48 Condition: stable 07:48 Discharge instructions given to patient, family, Instructed on discharge instructions, follow up and referral plans. medication usage, Demonstrated understanding of instructions, follow-up care, medications, Prescriptions given X 2. 07:48 Patient left the ED. jl7 Signatures: Natalie Gomez, RN RN [facility] Rick Palacios, SANYA RN Lev Egan Marce Alcocer RN RN jl7 Alex Cota MD MD wv2 Lashay Hanna ag3 Corrections: (The following items were deleted from the chart) 06:33 06:20 General: Appears sg sg
[2020-04-18 07:52] VITALS: TEMP 97.9; O2SAT 98
[2020-04-18 07:54] VITALS: BP 129/87
== END 2020-04-18 07:48 | disposition home or self-care (01) ==
LOC: ER 05:26
DX: J45.909 Unspecified asthma, uncomplicated (principal); Z88.0 Allergy status to penicillin
CPT/HCPCS: 99284; J7512

== ENCOUNTER 2020-05-17 21:36 | Emergency (ER) | payer SELFPAY ==
[2020-05-17] MEDS ORDERED: IPRATROPIUM BROM 0.5MG/2.5ML ONE (23:21)
[2020-05-17] MEDS ORDERED: predniSONE 20 MG TAB ONE (23:21)
[2020-05-17] MEDS ORDERED: ALBUTEROL 2.5 MG/3 ML NEB SOL ONE (23:22)
--- NOTE | 2020-05-18 00:21 | EDPHYS ---
Physician Documentation [facility] Name: Manish Luis Jr Age: 24 yrs Sex: Male : 1995 Arrival Date: 05/17/2020 Time: 21:36 Bed 3 Private MD: ED Physician Calvin Pope HPI: 05/17 23:07 This 24 yrs old Black Male presents to ER via Ambulatory with complaints of Asthma jmm Exacerbation. 23:07 The patient presents to the emergency department with wheezing, Current therapy: jmm albuterol nebs. Onset: The symptoms/episode began/occurred gradually. Modifying factors: The symptoms are alleviated by nothing, the symptoms are aggravated by weather. Associated signs and symptoms:. The patient has not experienced similar symptoms in the past. This is a 24 year old male with a history of asthma that presents to the ED with complaints of shortness of breath due to his asthma. Patient states he is out of albuterol. . Historical: - Allergies: 21:44 PENICILLINS; ll1 - PMHx: 21:44 Asthma; ll1 - PSHx: 21:44 None; ll1 - Immunization history:: Flu vaccine is up to date. - Social history:: Smoking status: Patient reports the use of cigarette tobacco products, denies chronic smoking, but will smoke occasionally. ROS: 05/18 00:15 Constitutional: Negative for fever, chills, and weight loss, Cardiovascular: Negative jmm for chest pain, palpitations, and edema. Respiratory: Positive for cough, wheezing. All other systems are negative. Exam: 00:15 Constitutional: This is a well developed, well nourished patient who is awake, alert, jmm and in no acute distress. Head/Face: atraumatic. Eyes: EOMI, no conjunctival erythema appreciated ENT: Moist Mucus Membranes Neck: Trachea midline, Supple Chest/axilla: Normal chest wall appearance and motion. Cardiovascular: Regular rate and rhythm. No edema appreciated 00:15 Abdomen/GI: Non distended, soft Back: Normal ROM Skin: General appearance color normal MS/ Extremity: Moves all extremities, no obvious deformities appreciated, no edema noted to the lower extremities Neuro: Awake and alert, normal gait Psych: Behavior is normal, Mood is normal, Patient is cooperative and pleasant 00:15 Respiratory: the patient does not display signs of respiratory distress, Respirations: normal, Breath sounds: wheezing: that is moderate, is heard in the left upper lobe, left posterior upper lobe and left posterior lower lobe. Vital Signs: 05/17 21:42 BP 121 / 82; Pulse 60; Resp 17; Temp 98.1; Pulse Ox 99% ; Weight 70.31 kg; Height 5 ft. ll1 10 in. (177.80 cm); Pain 0/10; 05/18 00:10 BP 131 / 86; Pulse 93; Resp 17; Pulse Ox 100% on R/A; wh 05/17 21:42 Body Mass Index 22.24 (70.31 kg, 177.80 cm) ll1 MDM: 05/17 23:07 Patient medically screened. [facility] 05/18 00:16 Data reviewed: vital signs, nurses notes. Counseling: I had a detailed discussion with [facility] the patient and/or guardian regarding: the historical points, exam findings, and any diagnostic results supporting the discharge/admit diagnosis, the need for outpatient follow up, to return to the emergency department if symptoms worsen or persist or if there are any questions or concerns that arise at home. ED course: Decreased wheezing on reevaluation. Patient is alert, non toxic in appearance. And in no resp distress on discharge. . Administered Medications: 05/17 23:12 Drug: predniSONE 60 mg Route: PO; rv 05/18 00:10 Follow up: Response: No adverse reaction 00:36 Follow up: Response: No adverse reaction rv 05/17 23:13 Drug: DuoNeb (3:1) (2.5 mg - 0.5 mg) 3 ml Route: Nebulizer; rv 05/18 00:10 Follow up: Response: Marked relief of symptoms; Wheezing diminished wh 00:36 Follow up: Response: No adverse reaction; Wheezing diminished rv Disposition: 02:24 Co-signature as Attending Physician, Calvin Pope MD. rn Disposition: 05/18/20 00:20 Discharged to Home. Impression: Unspecified asthma with (acute) exacerbation. - Condition is Stable. - Discharge Instructions: Asthma, Adult. - Prescriptions for Prednisone 20 mg Oral Tablet - take 3 tablet by ORAL route once daily for 5 days; 15 tablet. Albuterol Sulfate 2.5 mg /3 mL (0.083 %) Inhalation Solution for Nebulization - inhale 1 unit by NEBULIZATION route every 8 hours As needed; 1 box. Albuterol Sulfate 90 mcg/actuation - inhale 1-2 puff by INHALATION route every 4-6 hours; 1 Inhaler. - Medication Reconciliation Form, Thank You Letter, Antibiotic Education, Prescription Opioid Use form. - Follow up: Private Physician; When: 2 - 3 days; Reason: Recheck today's complaints, Continuance of care, Re-evaluation by your physician. Signatures: Jeer Guerrero PA PA jmm Nieto, Roman, MD MD rn Vicente, Ronaldo, RN RN rv Kelley Zhao RN RN [facility] Alex Copeland RN Corrections: (The following items were deleted from the chart) 00:36 00:20 05/18/2020 00:20 Discharged to Home. Impression: Unspecified asthma with (acute) rv exacerbation. Condition is Stable. Forms are Medication Reconciliation Form, Thank You Letter, Antibiotic Education, Prescription Opioid Use. Follow up: Private Physician; When: 2 - 3 days; Reason: Recheck today's complaints, Continuance of care, Re-evaluation by your physician. chino
--- NOTE | 2020-05-18 00:21 | ER ---
Nurse's Notes [facility] Name: Manish Luis Jr Age: 24 yrs Sex: Male : 1995 Arrival Date: 05/17/2020 Time: 21:36 Bed 3 Private MD: Diagnosis: Unspecified asthma with (acute) exacerbation Presentation: 05/17 21:42 Chief complaint: Patient states: Out of inhaler albuterol. SOB and wheezing started ll1 last night. No fever. 2. Nebulizer machine broke a couple months ago. Coronavirus screen: Client denies travel out of the [place] in the last 14 days. At this time, the client does not indicate any symptoms associated with coronavirus-19. Ebola Screen: Patient denies travel to an Ebola-affected area in the 21 days before illness onset. Initial Sepsis Screen: Does the patient meet any 2 criteria? No. Patient's initial sepsis screen is negative. Does the patient have a suspected source of infection? Yes: Productive cough/pneumonia. Risk Assessment: Do you want to hurt yourself or someone else? Patient reports no desire to harm self or others. Onset of symptoms was May 17, 2020. 21:42 Method Of Arrival: Ambulatory ll1 21:42 Acuity: REYNA 4 ll1 Historical: - Allergies: 21:44 PENICILLINS; ll1 - PMHx: 21:44 Asthma; ll1 - PSHx: 21:44 None; ll1 - Immunization history:: Flu vaccine is up to date. - Social history:: Smoking status: Patient reports the use of cigarette tobacco products, denies chronic smoking, but will smoke occasionally. Screenin:13 Abuse screen: Denies threats or abuse. Denies injuries from another. Nutritional rv screening: No deficits noted. Tuberculosis screening: No symptoms or risk factors identified. Fall Risk None identified. Assessment: 23:09 General: Appears comfortable, Behavior is calm, cooperative. Pain: Denies pain. Neuro: rv Level of Consciousness is awake, alert, obeys commands, Oriented to person, place, time, situation. Cardiovascular: Patient's skin is warm and dry. 23:13 Respiratory: Airway is patent Respiratory effort is even, unlabored, Respiratory rv pattern is regular, Breath sounds with wheezes bilaterally. 05/18 00:34 Reassessment: Patient appears in no apparent distress at this time. Patient and/or rv family updated on plan of care and expected duration. Pain level reassessed. Patient is alert, oriented x 3, equal unlabored respirations, skin warm/dry/pink. Patient states feeling better. Patient states symptoms have improved. Vital Signs: 05/17 21:42 BP 121 / 82; Pulse 60; Resp 17; Temp 98.1; Pulse Ox 99% ; Weight 70.31 kg; Height 5 ft. ll1 10 in. (177.80 cm); Pain 0/10; 05/18 00:10 BP 131 / 86; Pulse 93; Resp 17; Pulse Ox 100% on R/A; wh 05/17 21:42 Body Mass Index 22.24 (70.31 kg, 177.80 cm) ll1 ED Course: 05/17 21:36 Patient arrived in ED. cl3 21:44 Triage completed. ll1 21:44 Arm band placed on. 1 22:46 Jere Guerrero PA is PHCP. [facility] 22:46 Calvin Pope MD is Attending Physician. [facility] 22:58 Carl Manley RN is Primary Nurse. rv 23:13 Patient has correct armband on for positive identification. Pulse ox on. NIBP on. rv 05/18 00:11 No provider procedures requiring assistance completed. Patient did not have IV access wh during this emergency room visit. Administered Medications: 05/17 23:12 Drug: predniSONE 60 mg Route: PO; rv 05/18 00:10 Follow up: Response: No adverse reaction 00:36 Follow up: Response: No adverse reaction rv 05/17 23:13 Drug: DuoNeb (3:1) (2.5 mg - 0.5 mg) 3 ml Route: Nebulizer; rv 05/18 00:10 Follow up: Response: Marked relief of symptoms; Wheezing diminished wh 00:36 Follow up: Response: No adverse reaction; Wheezing diminished rv Outcome: 00:11 Discharged to home ambulatory. rv 00:11 Condition: improved 00:20 Discharge ordered by . [facility] 00:35 Discharged to home ambulatory. rv 00:35 Condition: improved 00:35 Discharge instructions given to patient, Instructed on discharge instructions, follow up and referral plans. medication usage, POC Demonstrated understanding of instructions, follow-up care, medications, POC Prescriptions given X 3. 00:36 Patient left the ED. rv Signatures: Jere Guerrero PA PA jmm Habalo, Winsy, RN RN Carl Manley RN RN Vonda Day cl3 Kelley Zhao RN RN ll1
[2020-05-18 00:41] VITALS: TEMP 98.1
[2020-05-18 00:42] VITALS: BP 131/86; O2SAT 100
== END 2020-05-18 00:36 | disposition home or self-care (01) ==
LOC: ER 21:36
DX: J45.901 Unspecified asthma with (acute) exacerbation (principal); F17.210 Nicotine dependence, cigarettes, uncomplicated; Z88.0 Allergy status to penicillin
CPT/HCPCS: 99284; J7512

== ENCOUNTER 2020-06-18 08:27 | Emergency (ER) | payer SELFPAY ==
--- NOTE | 2020-06-18 09:30 | EDPHYS ---
Physician Documentation [facility] Name: Manish Luis Jr Age: 24 yrs Sex: Male : 1995 Arrival Date: 06/18/2020 Time: 08:27 Bed 19 Private MD: ED Physician Alex Cota HPI: 06/18 09:28 This 24 yrs old Black Male presents to ER via Ambulatory with complaints of Asthma ma2 Exacerbation. 09:28 Onset: The symptoms/episode began/occurred gradually, 2 day(s) ago. Associated signs ma2 and symptoms: Pertinent negatives: fever, nausea, palpitations. Severity of symptoms: At their worst the symptoms were mild in the emergency department the symptoms are unchanged. The patient has experienced similar episodes in the past. Historical: - Allergies: 08:51 PENICILLINS; aa5 - Home Meds: 08:51 Albuterol Inhl [Active]; aa5 - PMHx: 08:51 Asthma; aa5 - PSHx: 08:51 None; aa5 - Immunization history:: Adult Immunizations unknown. - Social history:: Smoking status: Patient reports the use of cigarette tobacco products, Patient/guardian denies using alcohol, street drugs, The patient lives with family. - Family history:: not pertinent. ROS: 09:28 Constitutional: Negative for fever, chills, and weight loss. ma2 09:28 All other systems are negative. Exam: 09:28 Constitutional: This is a well developed, well nourished patient who is awake, alert, ma2 and in no acute distress. Chest/axilla: Normal chest wall appearance and motion. Nontender with no deformity. No lesions are appreciated. Cardiovascular: Regular rate and rhythm with a normal S1 and S2. No gallops, murmurs, or rubs. Normal PMI, no JVD. No pulse deficits. Respiratory: bilateral expiratory wheez, otherwise Lungs have equal breath sounds bilaterally, clear to auscultation and percussion. No rales, rhonchi or noted. No increased work of breathing, no retractions or nasal flaring. Abdomen/GI: Soft, non-tender, with normal bowel sounds. No distension or tympany. No guarding or rebound. No evidence of tenderness throughout. Vital Signs: 08:42 BP 129 / 85; Pulse 60; Resp 20 S; Temp 98.8(TE); Pulse Ox 97% on R/A; Weight 70.31 kg aa5 (R); Height 5 ft. 9 in. (175.26 cm); 09:38 BP 123 / 74; Pulse 59; Resp 17; Pulse Ox 100% ; rb3 10:01 BP 123 / 74; Pulse 65; Resp 17; Pulse Ox 100% ; rb3 08:42 Body Mass Index 22.89 (70.31 kg, 175.26 cm) aa5 MDM: 08:50 Patient medically screened. ma2 09:28 Differential diagnosis: acute asthma, exercise-induced asthma, reactive airway, URI. ma2 Antibiotic administration: Not indicated. Data reviewed: vital signs, nurses notes. Counseling: I had a detailed discussion with the patient and/or guardian regarding: the historical points, exam findings, and any diagnostic results supporting the discharge/admit diagnosis, the presence of at least one elevated blood pressure reading (>120/80) during this emergency department visit, the need for outpatient follow up. Response to treatment: the patient's symptoms have markedly improved after treatment. Administered Medications: 09:22 Drug: DuoNeb (albuterol 2.5 mg, ipratropium 0.5 mg) (3:1) (2.5 mg - 0.5 mg) 3 ml Route: rb3 Nebulizer; 10:12 Follow up: Response: No adverse reaction; Marked relief of symptoms rb3 09:50 Drug: predniSONE 20 mg Route: PO; rb3 10:12 Follow up: Response: No adverse reaction rb3 Disposition: 06/18/20 09:29 Discharged to Home. Impression: Mild persistent asthma with (acute) exacerbation. - Condition is Stable. - Discharge Instructions: Asthma, Adult. - Prescriptions for NEBULISER MACHINE - take 1 unit by NEBULIZATION route 3 times per day; 1 unit. Medrol (Horacio) 4 mg Oral Tablets, Dose Pack - take 1 tablet by ORAL route as directed - follow package instructions; 1 packet. Albuterol Sulfate 90 mcg/actuation - inhale 1-2 puff by INHALATION route every 4-6 hours; 1 Inhaler. - Medication Reconciliation Form, Thank You Letter, Antibiotic Education, Prescription Opioid Use, Work release form form. - Follow up: Private Physician; When: Tomorrow; Reason: Continuance of care. Signatures: Alyson Rosenberg, RN RN aa5 Alex Cota MD MD ma2 Valentina Elizalde, RN RN rb3 Corrections: (The following items were deleted from the chart) 10:15 09:29 06/18/2020 09:29 Discharged to Home. Impression: Mild persistent asthma with rb3 (acute) exacerbation. Condition is Stable. Prescriptions for NEBULISER MACHINE - take 1 unit by NEBULIZATION route 3 times per day; 1 unit, Medrol (Horacio) 4 mg Oral Tablets, Dose Pack - take 1 tablet by ORAL route as directed - follow package instructions; 1 packet, Albuterol Sulfate 90 mcg/actuation - inhale 1-2 puff by INHALATION route every 4-6 hours; 1 Inhaler. and Forms are Medication Reconciliation Form, Thank You Letter, Antibiotic Education, Prescription Opioid Use. Follow up: Private Physician; When: Tomorrow; Reason: Continuance of care. ma2
--- NOTE | 2020-06-18 09:30 | ER ---
Nurse's Notes [facility] Name: Manish Luis Jr Age: 24 yrs Sex: Male : 1995 Arrival Date: 06/18/2020 Time: 08:27 Bed 19 Private MD: Diagnosis: Mild persistent asthma with (acute) exacerbation Presentation: 06/18 08:42 Chief complaint: Patient states: "I woke up having trouble breathing today and I am out aa5 of neb treatments". Pt reports hx of Asthma. 08:42 Coronavirus screen: shortness of breath. Ebola Screen: Patient negative for fever aa5 greater than or equal to 101.5 degrees Fahrenheit, and additional compatible Ebola Virus Disease symptoms. Initial Sepsis Screen: Does the patient meet any 2 criteria? No. Patient's initial sepsis screen is negative. Does the patient have a suspected source of infection? No. Patient's initial sepsis screen is negative. Risk Assessment: Do you want to hurt yourself or someone else? Patient reports no desire to harm self or others. Onset of symptoms was June 18, 2020. 08:42 Acuity: REYNA 4 aa5 08:42 Method Of Arrival: Ambulatory aa5 Historical: - Allergies: 08:51 PENICILLINS; aa5 - Home Meds: 08:51 Albuterol Inhl [Active]; aa5 - PMHx: 08:51 Asthma; aa5 - PSHx: 08:51 None; aa5 - Immunization history:: Adult Immunizations unknown. - Social history:: Smoking status: Patient reports the use of cigarette tobacco products, Patient/guardian denies using alcohol, street drugs, The patient lives with family. - Family history:: not pertinent. Screenin:45 Abuse screen: Denies threats or abuse. Nutritional screening: No deficits noted. rb3 Tuberculosis screening: No symptoms or risk factors identified. Fall Risk None identified. Assessment: 08:45 General: Appears in no apparent distress. comfortable, Behavior is calm, cooperative. rb3 Pain: Denies pain. Neuro: Level of Consciousness is awake, alert, obeys commands, Oriented to person, place, time, situation. Respiratory: Reports shortness of breath Airway is patent Respiratory effort is even, unlabored, Respiratory pattern is regular, symmetrical. GI: No signs and/or symptoms were reported involving the gastrointestinal system. : No signs and/or symptoms were reported regarding the genitourinary system. 09:38 Reassessment: Patient appears in no apparent distress at this time. No changes from rb3 previously documented assessment. 10:00 Reassessment: Discharge pending due to breathing treatment. rb3 Vital Signs: 08:42 BP 129 / 85; Pulse 60; Resp 20 S; Temp 98.8(TE); Pulse Ox 97% on R/A; Weight 70.31 kg aa5 (R); Height 5 ft. 9 in. (175.26 cm); 09:38 BP 123 / 74; Pulse 59; Resp 17; Pulse Ox 100% ; rb3 10:01 BP 123 / 74; Pulse 65; Resp 17; Pulse Ox 100% ; rb3 08:42 Body Mass Index 22.89 (70.31 kg, 175.26 cm) aa5 ED Course: 08:27 Patient arrived in ED. as 08:42 Arm band placed on. aa5 08:45 Patient has correct armband on for positive identification. Bed in low position. Call rb3 light in reach. Side rails up X 1. Pulse ox on. NIBP on. 08:50 Alex Cota MD is Attending Physician. ma2 08:51 Triage completed. aa5 09:12 Valentina Elizalde, RN is Primary Nurse. rb3 10:12 No provider procedures requiring assistance completed. Patient did not have IV access rb3 during this emergency room visit. Administered Medications: 09:22 Drug: DuoNeb (albuterol 2.5 mg, ipratropium 0.5 mg) (3:1) (2.5 mg - 0.5 mg) 3 ml Route: rb3 Nebulizer; 10:12 Follow up: Response: No adverse reaction; Marked relief of symptoms rb3 09:50 Drug: predniSONE 20 mg Route: PO; rb3 10:12 Follow up: Response: No adverse reaction rb3 Outcome: 09:29 Discharge ordered by . ma2 10:15 Discharged to home ambulatory. rb3 10:15 Condition: stable 10:15 Discharge instructions given to patient, Instructed on discharge instructions, follow up and referral plans. medication usage, Demonstrated understanding of instructions, follow-up care, medications, Prescriptions given X 3. 10:15 Patient left the ED. rb3 Signatures: Margarita Adamson Audri RN RN aa5 Alex Cota MD MD ma2 Valentina Elizalde RN RN rb3
[2020-06-18] MEDS ORDERED: IPRATROPIUM BROM 0.5MG/2.5ML ONE (09:36)
[2020-06-18] MEDS ORDERED: ALBUTEROL 2.5 MG/3 ML NEB SOL ONE (09:36)
[2020-06-18] MEDS ORDERED: predniSONE 20 MG TAB ONE (10:06)
[2020-06-18 10:26] VITALS: TEMP 98.8
[2020-06-18 10:27] VITALS: BP 123/74; O2SAT 100
== END 2020-06-18 10:15 | disposition home or self-care (01) ==
LOC: ER 08:27
DX: J45.31 Mild persistent asthma with (acute) exacerbation (principal); F17.210 Nicotine dependence, cigarettes, uncomplicated; Z88.0 Allergy status to penicillin
CPT/HCPCS: 99284; J7512

== ENCOUNTER 2020-07-14 04:45 | Emergency (ER) | payer SELFPAY ==
--- NOTE | 2020-07-14 05:14 | ER ---
Nurse's Notes [facility] Name: Manish Luis Jr Age: 24 yrs Sex: Male : 1995 Arrival Date: 07/14/2020 Time: 04:46 Bed 15 Private MD: Diagnosis: Asthma Presentation: 07/14 04:54 Chief complaint: Patient states: he has asthma and approx an hour ago developed bb shortness of breath. Coronavirus screen: At this time, the client does not indicate any symptoms associated with coronavirus-19. Ebola Screen: No symptoms or risks identified at this time. Initial Sepsis Screen: Does the patient meet any 2 criteria? No. Patient's initial sepsis screen is negative. Does the patient have a suspected source of infection? No. Patient's initial sepsis screen is negative. Risk Assessment: Do you want to hurt yourself or someone else? Patient reports no desire to harm self or others. Onset of symptoms was July 14, 2020. 04:54 Method Of Arrival: Ambulatory bb 04:54 Acuity: REYNA 4 bb Historical: - Allergies: 04:56 PENICILLINS; bb - Home Meds: 04:56 Albuterol Inhl [Active]; bb - PMHx: 04:56 Asthma; bb - PSHx: 04:56 None; bb - Immunization history:: Adult Immunizations up to date. - Social history:: Smoking status: Patient denies any tobacco usage or history of. - Family history:: not pertinent. - Hospitalizations: : No recent hospitalization is reported. Screenin:00 Abuse screen: Denies threats or abuse. Denies injuries from another. Nutritional sf screening: No deficits noted. Tuberculosis screening: No symptoms or risk factors identified. Fall Risk None identified. Total Anand Fall Scale indicates No Risk (0-24 pts). Assessment: 05:00 General: Appears in no apparent distress. comfortable, Behavior is calm, cooperative. sf Pain: Denies pain. Neuro: No deficits noted. Level of Consciousness is awake, alert, Oriented to person, place, time, situation. Cardiovascular: No deficits noted. Reports shortness of breath, Denies chest pain, lightheadedness, Patient's skin is warm and dry. Respiratory: Reports shortness of breath at rest cough that is non-productive, Airway is patent Respiratory effort is even, with nasal flaring, Respiratory pattern is symmetrical, tachypnea Breath sounds with wheezes bilaterally. in left posterior upper lobe, right posterior upper lobe, left posterior lower lobe, right posterior middle lobe and right posterior lower lobe the patient has mild shortness of breath Denies pain with respiration, pain with cough, pain with movement. GI: No deficits noted. No signs and/or symptoms were reported involving the gastrointestinal system. : No deficits noted. No signs and/or symptoms were reported regarding the genitourinary system. EENT: No deficits noted. No signs and/or symptoms were reported regarding the EENT system. Derm: No deficits noted. No signs and/or symptoms reported regarding the dermatologic system. Skin is pink, warm \T\ dry. Musculoskeletal: No deficits noted. No signs and/or symptoms reported regarding the musculoskeletal system. 05:33 Reassessment: Patient appears in no apparent distress at this time. Patient and/or sf family updated on plan of care and expected duration. Pain level reassessed. Patient is alert, oriented x 3, equal unlabored respirations, skin warm/dry/pink. Lungs now clear throughout, no wheezes noted Patient states feeling better. Patient states symptoms have improved. Vital Signs: 04:54 BP 96 / 81; Pulse 87; Resp 18 S; Temp 97.8(O); Pulse Ox 97% on R/A; Weight 70.31 kg bb (R); Height 5 ft. 9 in. (175.26 cm) (R); Pain 0/10; 05:00 BP 113 / 80; Pulse 88; Resp 18; Pulse Ox 96% ; sf 05:15 BP 112 / 71; Pulse 88; Resp 16; Pulse Ox 99% ; sf 04:54 Body Mass Index 22.89 (70.31 kg, 175.26 cm) bb ED Course: 04:46 Patient arrived in ED. cl3 04:50 Calvin Pope MD is Attending Physician. rn 04:55 Triage completed. bb 04:56 Arm band placed on Patient placed in an exam room, on a stretcher, on pulse oximetry. bb 04:59 Rick Steinberg, SANYA is Primary Nurse. sf 05:00 Patient has correct armband on for positive identification. Bed in low position. Call sf light in reach. Side rails up X 1. Pulse ox on. NIBP on. Door closed. Noise minimized. Visitors limited. Lights dimmed. Verbal reassurance given. 05:00 No provider procedures requiring assistance completed. Patient did not have IV access sf during this emergency room visit. Administered Medications: 05:04 Drug: predniSONE 60 mg Route: PO; sf 05:34 Follow up: Response: No adverse reaction; Marked relief of symptoms sf 05:08 Drug: Albuterol 2.5 mg Route: Inhalation; sf 05:34 Follow up: Response: No adverse reaction; Marked relief of symptoms sf 05:08 Drug: AtroVENT (ipratropium) Aerosol 0.5 mg Route: Inhalation; sf 05:34 Follow up: Response: No adverse reaction; Marked relief of symptoms sf Outcome: 05:13 Discharge ordered by . rn 05:33 Discharged to home ambulatory. sf 05:33 Condition: improved 05:33 Discharge instructions given to patient, Instructed on discharge instructions, follow up and referral plans. medication usage, Demonstrated understanding of instructions, follow-up care, medications, Prescriptions given X 2. 05:34 Patient left the ED. sf Signatures: Sharon Del Rio RN RN Calvin Perez MD MD rn Lewis, Charde cl3 Rick Steinberg RN RN sf Corrections: (The following items were deleted from the chart) 05:15 05:00 Respiratory: Reports shortness of breath at rest Airway is patent Respiratory sf effort is even, with nasal flaring, Respiratory pattern is symmetrical, tachypnea Breath sounds with wheezes bilaterally. in left posterior upper lobe, right posterior upper lobe, left posterior lower lobe, right posterior middle lobe and right posterior lower lobe the patient has mild shortness of breath sf 05:15 05:00 Derm: No deficits noted. No signs and/or symptoms reported regarding the dermatologic system. sf
--- NOTE | 2020-07-14 05:14 | EDPHYS ---
Physician Documentation [facility] Name: Manish Luis Jr Age: 24 yrs Sex: Male : 1995 Arrival Date: 07/14/2020 Time: 04:46 Bed 15 Private MD: ED Physician Calvin Pope HPI: 07/14 04:56 This 24 yrs old Black Male presents to ER via Ambulatory with complaints of Asthma rn Exacerbation. 04:56 The patient presents to the emergency department with wheezing, Current therapy: rn albuterol inhaler, the patient was reported to have audible wheezing. Onset: The symptoms/episode began/occurred yesterday. Modifying factors: The symptoms are alleviated by nothing, the symptoms are aggravated by nothing. Associated signs and symptoms: Pertinent negatives: fever. Severity of symptoms: At their worst the symptoms were mild in the emergency department the symptoms are unchanged. The patient has experienced similar episodes in the past. The patient has not recently seen a physician. Reports ran out of inhaler, is waiting for his nebulizer machine to arrive. No fever, does not feel ill. Reports not as bad as has been in past. . Historical: - Allergies: 04:56 PENICILLINS; bb - Home Meds: 04:56 Albuterol Inhl [Active]; bb - PMHx: 04:56 Asthma; bb - PSHx: 04:56 None; bb - Immunization history:: Adult Immunizations up to date. - Social history:: Smoking status: Patient denies any tobacco usage or history of. - Family history:: not pertinent. - Hospitalizations: : No recent hospitalization is reported. ROS: 04:56 Constitutional: Negative for fever, chills, and weight loss, Eyes: Negative for injury, rn pain, redness, and discharge, Cardiovascular: Negative for chest pain, palpitations, and edema, Respiratory: Negative for shortness of breath, cough, wheezing, and pleuritic chest pain, Abdomen/GI: Negative for abdominal pain, nausea, vomiting, diarrhea, and constipation, Back: Negative for injury and pain, : Negative for injury, bleeding, discharge, and swelling, MS/Extremity: Negative for injury and deformity, Skin: Negative for injury, rash, and discoloration, Neuro: Negative for headache, weakness, numbness, tingling, and seizure. Exam: 04:56 Constitutional: This is a well developed, well nourished patient who is awake, alert, rn and in no acute distress. Head/Face: Normocephalic, atraumatic. Cardiovascular: Regular rate and rhythm. No pulse deficits. Respiratory: No increased work of breathing, no retractions or nasal flaring. + mild bilateral wheezing Abdomen/GI: Soft, non-tender Skin: Warm, dry MS/ Extremity: Pulses equal, no cyanosis. Neuro: Awake and alert, GCS 15 Vital Signs: 04:54 BP 96 / 81; Pulse 87; Resp 18 S; Temp 97.8(O); Pulse Ox 97% on R/A; Weight 70.31 kg bb (R); Height 5 ft. 9 in. (175.26 cm) (R); Pain 0/10; 05:00 BP 113 / 80; Pulse 88; Resp 18; Pulse Ox 96% ; sf 05:15 BP 112 / 71; Pulse 88; Resp 16; Pulse Ox 99% ; sf 04:54 Body Mass Index 22.89 (70.31 kg, 175.26 cm) bb MDM: 04:50 Patient medically screened. rn 05:12 Differential diagnosis: acute asthma. Data reviewed: vital signs, nurses notes, old rn medical records, and as a result, I will discharge patient. Counseling: I had a detailed discussion with the patient and/or guardian regarding: the historical points, exam findings, and any diagnostic results supporting the discharge/admit diagnosis, the need for outpatient follow up, to return to the emergency department if symptoms worsen or persist or if there are any questions or concerns that arise at home. Response to treatment: the patient's symptoms have mildly improved after treatment, and as a result, I will discharge patient. Special discussion: I discussed with the patient/guardian in detail that at this point there is no indication for admission to the hospital. It is understood, however, that if the symptoms persist or worsen the patient needs to return immediately for re-evaluation. Based on the history and exam findings, there is no indication for further emergent testing or inpatient evaluation. I discussed with the patient/guardian the need to see the primary care provider for further evaluation of the symptoms. I discussed with the patient/guardian the need to see the manager home healthcare for further evaluation of the symptoms. Administered Medications: 05:04 Drug: predniSONE 60 mg Route: PO; sf 05:34 Follow up: Response: No adverse reaction; Marked relief of symptoms sf 05:08 Drug: Albuterol 2.5 mg Route: Inhalation; sf 05:34 Follow up: Response: No adverse reaction; Marked relief of symptoms sf 05:08 Drug: AtroVENT (ipratropium) Aerosol 0.5 mg Route: Inhalation; sf 05:34 Follow up: Response: No adverse reaction; Marked relief of symptoms sf Disposition: 07/14/20 05:13 Discharged to Home. Impression: Asthma. - Condition is Stable. - Discharge Instructions: Asthma, Acute Bronchospasm. - Prescriptions for Prednisone 20 mg Oral Tablet - take 3 tablet by ORAL route once daily for 5 days; 15 tablet. Albuterol Sulfate 90 mcg/actuation - inhale 1-2 puff by INHALATION route every 4-6 hours; 1 Inhaler. - Medication Reconciliation Form, Thank You Letter, Antibiotic Education, Prescription Opioid Use form. - Follow up: Private Physician; When: As needed; Reason: Recheck today's complaints, Re-evaluation by your physician. - Problem is new. - Symptoms have improved. Signatures: Sharon Del Rio RN RN bb Nieto, Roman, MD MD rn Fitzpatrick, Steven, RN RN sf Corrections: (The following items were deleted from the chart) 05:34 05:13 07/14/2020 05:13 Discharged to Home. Impression: Asthma. Condition is Stable. sf Forms are Medication Reconciliation Form, Thank You Letter, Antibiotic Education, Prescription Opioid Use. Follow up: Private Physician; When: As needed; Reason: Recheck today's complaints, Re-evaluation by your physician. Problem is new. Symptoms have improved. rn
[2020-07-14] MEDS ORDERED: predniSONE 20 MG TAB ONE (05:19)
[2020-07-14] MEDS ORDERED: ALBUTEROL 2.5 MG/3 ML NEB SOL ONE (05:20)
[2020-07-14] MEDS ORDERED: IPRATROPIUM BROM 0.5MG/2.5ML ONE (05:20)
[2020-07-14 05:40] VITALS: TEMP 97.8
[2020-07-14 05:43] VITALS: BP 112/71; O2SAT 99
== END 2020-07-14 05:34 | disposition home or self-care (01) ==
LOC: ER 04:45
DX: J45.909 Unspecified asthma, uncomplicated (principal); Z88.0 Allergy status to penicillin
CPT/HCPCS: 99284; J7512

== ENCOUNTER 2020-07-23 11:55 | Emergency (ER) | payer SELFPAY ==
--- NOTE | 2020-07-23 14:08 | EDPHYS ---
Physician Documentation [facility] Name: Manish Luis Jr Age: 24 yrs Sex: Male : 1995 Arrival Date: 07/23/2020 Time: 11:58 Bed 24 Private MD: ED Physician Leonid Blevins HPI: 07/23 13:11 This 24 yrs old Black Male presents to ER via Ambulatory with complaints of Sore Throat.pkl 13:11 The patient or guardian reports cough, with productive sputum, that is yellow. Onset: pkl The symptoms/episode began/occurred 3 day(s) ago. Historical: - Allergies: 12:12 PENICILLINS; ll1 - PMHx: 12:12 Asthma; ll1 - PSHx: 12:12 None; ll1 - Immunization history:: Flu vaccine is not up to date. - Social history:: Smoking status: Patient denies any tobacco usage or history of. ROS: 13:11 Eyes: Negative for injury, pain, redness, and discharge. pkl 13:11 ENT: Positive for sore throat. 13:11 Neck: Negative for stiffness. 13:11 Cardiovascular: Negative for chest pain. 13:11 Respiratory: Positive for cough, with yellow sputum. 13:11 Abdomen/GI: Negative for abdominal pain, nausea, vomiting, and diarrhea. 13:11 Back: Negative for acute changes. 13:11 : Negative for urinary symptoms. 13:11 MS/extremity: Negative for acute changes. 13:11 Skin: Negative for rash. 13:11 Neuro: Negative for altered mental status, loss of consciousness. Exam: 13:11 Head/Face: Normocephalic, atraumatic. Eyes: Pupils equal round and reactive to light, pkl extra-ocular motions intact. Lids and lashes normal. Conjunctiva and sclera are non-icteric and not injected. Cornea within normal limits. Periorbital areas with no swelling, redness, or edema. 13:11 ENT: Posterior pharynx: erythema, that is mild. 13:11 Neck: Exam negative for nuchal rigidity. 13:11 Chest/axilla: Exam negative for acute changes. 13:11 Cardiovascular: Rate: normal, Rhythm: regular. 13:11 Respiratory: the patient does not display signs of respiratory distress, Respirations: normal, Breath sounds: are clear throughout. 13:11 Abdomen/GI: Bowel sounds: normal, Palpation: abdomen is soft and non-tender, in all quadrants. 13:11 Back: Exam negative for acute changes. 13:11 : Exam negative for acute changes. 13:11 Musculoskeletal/extremity: Exam is negative for acute changes. 13:11 Skin: Exam negative for rash. 13:11 Neuro: Orientation: is normal, Mentation: is normal, Cranial nerves: grossly normal, Motor: is normal. Vital Signs: 12:09 BP 128 / 85; Pulse 100; Resp 18; Temp 99.0; Pulse Ox 96% ; Weight 68.04 kg; Height 5 ll1 ft. 9 in. (175.26 cm); Pain 4/10; 13:38 BP 121 / 86; Pulse 85; Resp 20; Pulse Ox 97% on R/A; vg1 12:09 Body Mass Index 22.15 (68.04 kg, 175.26 cm) ll1 MDM: 13:00 Patient medically screened. pkl 14:05 Data reviewed: vital signs, nurses notes. ED course: Discussed lab with patient. pkl Advised to follow up with PCP in 2 to 3 days. Patient understood instructions. 07/23 13:10 Order name: Strep pkl 07/23 13:11 Order name: Group A Streptococcus Rapid Sc; Complete Time: 13:45 EDMS 07/23 13:34 Order name: Throat Culture EDMS 07/23 14:04 Order name: SARS-COV-2 RT PCR; Complete Time: 14:04 EDMS Administered Medications: No medications were administered Disposition: 07/23/20 14:07 Discharged to Home. Impression: Bronchitis. - Condition is Stable. - Prescriptions for Guaifenesin AC 10- 100 mg/5 mL Oral Liquid - take 10 milliliters by ORAL route every 8 hours As needed; 120 milliliter. - Medication Reconciliation Form, Thank You Letter, Antibiotic Education, Prescription Opioid Use, Work release form form. - Follow up: Private Physician; When: 2 - 3 days; Reason: Re-evaluation by your physician. Signatures: Dispatcher [employer] EDMS Leonid Blevins MD MD pkl Smirch, Shelby, RN RN ss Lewis, Lynsay, RN RN ll1 Corrections: (The following items were deleted from the chart) 13:23 13:11 CORONAVIRUS+MR.LAB.BRZ ordered. EDMS EDKS 14:21 14:07 07/23/2020 14:07 Discharged to Home. Impression: Bronchitis. Condition is Stable. ss Forms are Medication Reconciliation Form, Thank You Letter, Antibiotic Education, Prescription Opioid Use. Follow up: Private Physician; When: 2 - 3 days; Reason: Re-evaluation by your physician. pkl
--- NOTE | 2020-07-23 14:08 | ER ---
Nurse's Notes [facility] Name: Manish Luis Jr Age: 24 yrs Sex: Male : 1995 Arrival Date: 07/23/2020 Time: 11:58 Bed 24 Private MD: Diagnosis: Bronchitis Presentation: 07/23 12:09 Chief complaint: Patient states: Sore throat, SOMERS, cough, low grade fever, SOB for 3 ll1 days. + diarrhea. Fever below 100 at home. Coronavirus screen: Client denies travel out of the [place] in the last 14 days. chills, cough unrelated to allergies, diarrhea, difficulty breathing, fever, headache, shortness of breath, Client presents with at least one sign or symptom that may indicate coronavirus-19. Standard/surgical mask placed on the client. Ebola Screen: Patient denies travel to an Ebola-affected area in the 21 days before illness onset. Initial Sepsis Screen: Does the patient meet any 2 criteria? HR > 90 bpm. No. Patient's initial sepsis screen is negative. Does the patient have a suspected source of infection? No. Patient's initial sepsis screen is negative. Risk Assessment: Do you want to hurt yourself or someone else? Patient reports no desire to harm self or others. Onset of symptoms was July 21, 2020. 12:09 Method Of Arrival: Ambulatory ll1 12:09 Acuity: REYNA 4 ll1 Historical: - Allergies: 12:12 PENICILLINS; ll1 - PMHx: 12:12 Asthma; ll1 - PSHx: 12:12 None; ll1 - Immunization history:: Flu vaccine is not up to date. - Social history:: Smoking status: Patient denies any tobacco usage or history of. Screenin:38 Abuse screen: Denies threats or abuse. Nutritional screening: No deficits noted. vg1 Tuberculosis screening: No symptoms or risk factors identified. Fall Risk No fall in past 12 months (0 pts). No secondary diagnosis (0 pts). No IV (0 pts). Ambulatory Aid- None/Bed Rest/Nurse Assist (0 pts). Gait- Normal/Bed Rest/Wheelchair (0 pts) Mental Status- Oriented to own ability (0 pts). Total Anand Fall Scale indicates No Risk (0-24 pts). Assessment: 13:30 General: Appears in no apparent distress. comfortable, Behavior is calm, cooperative. vg1 Pain: Denies pain. Neuro: Level of Consciousness is awake, alert, obeys commands, Oriented to person, place, time, situation. Cardiovascular: Patient's skin is warm and dry. Respiratory: Airway is patent Respiratory effort is even, unlabored, Breath sounds with wheezes in right upper lobe and right posterior upper lobe. GI: No signs and/or symptoms were reported involving the gastrointestinal system. : No signs and/or symptoms were reported regarding the genitourinary system. EENT: Throat is reddened. Derm: Skin is intact, is healthy with good turgor. Musculoskeletal: Circulation, motion, and sensation intact. Vital Signs: 12:09 BP 128 / 85; Pulse 100; Resp 18; Temp 99.0; Pulse Ox 96% ; Weight 68.04 kg; Height 5 ll1 ft. 9 in. (175.26 cm); Pain 4/10; 13:38 BP 121 / 86; Pulse 85; Resp 20; Pulse Ox 97% on R/A; vg1 12:09 Body Mass Index 22.15 (68.04 kg, 175.26 cm) ll1 ED Course: 11:58 Patient arrived in ED. mr 12:11 Triage completed. ll1 12:12 Arm band placed on. ll1 12:59 Patient placed in an exam room, on a stretcher. ll1 13:00 Leonid Blevins MD is Attending Physician. pknamrata 13:10 Salma Carrera, RN is Primary Nurse. vg1 13:15 COVID swab sent to lab. Strep swab sent to lab. jp3 13:38 Patient has correct armband on for positive identification. Bed in low position. Call vg1 light in reach. Side rails up X 1. 14:21 No provider procedures requiring assistance completed. Patient did not have IV access ss during this emergency room visit. Administered Medications: No medications were administered Outcome: 14:07 Discharge ordered by . theresa 14:21 Discharged to home ambulatory. ss 14:21 Condition: good 14:21 Discharge instructions given to patient, Instructed on discharge instructions, follow up and referral plans. medication usage, Demonstrated understanding of instructions, follow-up care, medications, Prescriptions given X 1. 14:21 Patient left the ED. ss Signatures: Leonid Blevins MD MD pkl Rivera, Mary Wen Montes De Oca, RN RN ss Tony Morrison jp3 Salma Carrera, RN RN vg1 Kelley Zhao, RN RN ll1
[2020-07-23 14:26] VITALS: TEMP 99
[2020-07-23 14:28] VITALS: BP 121/86; O2SAT 97
== END 2020-07-23 14:21 | disposition home or self-care (01) ==
LOC: ER 11:55
DX: J40 Bronchitis, not specified as acute or chronic (principal); Z20.822 Contact with and (suspected) exposure to COVID-19; Z88.0 Allergy status to penicillin
CPT/HCPCS: 87070; 87081; 99283; U0003

== ENCOUNTER 2020-10-26 15:00 | Emergency (ER) | payer SELFPAY ==
--- NOTE | 2020-10-26 16:22 | ER ---
Nurse's Notes [facility] Name: Manish Luis Jr Age: 25 yrs Sex: Male : 1995 Arrival Date: 10/26/2020 Time: 15:17 Bed Waiting Private MD: Diagnosis: Dermatitis, unspecified Presentation: 10/26 15:26 Chief complaint: Patient states: "I started with a rash on my arms about 2 weeks ago aa5 and a couple of days ago both of my arms started swelling up and they are itchy". Coronavirus screen: At this time, the client does not indicate any symptoms associated with coronavirus-19. Ebola Screen: Patient negative for fever greater than or equal to 101.5 degrees Fahrenheit, and additional compatible Ebola Virus Disease symptoms. Initial Sepsis Screen: Does the patient meet any 2 criteria? No. Patient's initial sepsis screen is negative. Does the patient have a suspected source of infection? No. Patient's initial sepsis screen is negative. Risk Assessment: Do you want to hurt yourself or someone else? Patient reports no desire to harm self or others. Onset of symptoms was September 2020. 15:26 Acuity: REYNA 4 aa5 15:26 Method Of Arrival: Ambulatory aa5 Triage Assessment: 15:26 General: Appears comfortable, Behavior is calm, cooperative. Pain: Denies pain. EENT: aa5 No deficits noted. Neuro: Level of Consciousness is awake, alert, obeys commands, Oriented to person, place, time, situation. Cardiovascular: Patient's skin is warm and dry. Respiratory: Airway is patent Respiratory effort is even, unlabored, Respiratory pattern is regular, symmetrical. GI: No signs and/or symptoms were reported involving the gastrointestinal system. : No signs and/or symptoms were reported regarding the genitourinary system. Derm: Skin is dry, Skin is normal, Skin temperature is warm Rash noted that is red, raised, on right arm and left arm. Swelling noted to domenico arms. Musculoskeletal: Range of motion: intact in all extremities. Historical: - Allergies: 15:28 PENICILLINS; aa5 - PMHx: 15:28 Asthma; aa5 - Immunization history:: Client reports having NOT received the Covid vaccine. Flu vaccine is not up to date. - Social history:: Smoking status: Patient denies any tobacco usage or history of. Screenin:30 Abuse screen: Denies threats or abuse. Nutritional screening: No deficits noted. aa5 Tuberculosis screening: No symptoms or risk factors identified. Fall Risk None identified. Assessment: 16:32 Neuro: Level of Consciousness is awake, alert, obeys commands, Oriented to person, aa5 place, time, situation. Respiratory: Airway is patent Respiratory effort is even, unlabored, Respiratory pattern is regular, symmetrical. Derm: Skin is dry, Skin is normal, Skin temperature is warm. Vital Signs: 15:26 BP 130 / 76; Pulse 60; Resp 16 S; Temp 97.8(TE); Pulse Ox 100% on R/A; Weight 68.95 kg aa5 (R); Height 5 ft. 9 in. (175.26 cm) (R); 15:26 Body Mass Index 22.45 (68.95 kg, 175.26 cm) aa5 ED Course: 15:17 Patient arrived in ED. as 15:26 Arm band placed on. aa5 15:26 Patient has correct armband on for positive identification. aa5 15:27 Triage completed. aa5 16:17 Sumit Suresh PA is PHCP. cp 16:17 Sumit Qiu MD is Attending Physician. cp 16:20 David Saldaña MD is Referral Physician. cp 16:32 No provider procedures requiring assistance completed. Patient did not have IV access aa5 during this emergency room visit. 16:33 Alyson Rosenberg RN is Primary Nurse. aa5 Administered Medications: 16:33 Drug: SOLU-Medrol (methylPREDNISolone sodium succinate) 125 mg Route: IM; Site: right aa5 deltoid; 16:34 Follow up: Response: Medication administered at discharge. aa5 Outcome: 16:21 Discharge ordered by MD. cp 16:32 Discharged to home ambulatory. aa5 16:32 Condition: stable 16:32 Discharge instructions given to patient, Instructed on discharge instructions, follow up and referral plans. medication usage, Demonstrated understanding of instructions, follow-up care, medications, Prescriptions given X 3. 16:34 Patient left the ED. aa5 Signatures: Margarita Adamson Audri, RN RN aa5 Sumit Suresh PA PA cp Corrections: (The following items were deleted from the chart) 15:29 15:26 Chief complaint: Patient states: "I started with a rash on my arms and a couple aa5 of days ago both of my arms started swelling up and they are itchy" aa5 :34 16:34 Neuro: Level of Consciousness is awake, alert, obeys commands, Oriented to aa5 person, place, time, situation, aa5 :34 16:34 Respiratory: Airway is patent Respiratory effort is even, unlabored, Respiratory aa5 pattern is regular, symmetrical, aa5 :34 16:34 Derm: Skin is dry, Skin is normal, Skin temperature is warm aa5 aa5
--- NOTE | 2020-10-26 16:22 | EDPHYS ---
Physician Documentation [facility] Name: Manish Luis Jr Age: 25 yrs Sex: Male : 1995 Arrival Date: 10/26/2020 Time: 15:17 Bed Waiting Private MD: ED Physician Sumit Qiu HPI: 10/26 16:15 This 25 yrs old Black Male presents to ER via Ambulatory with complaints of Arm cp Swelling. 16:15 The patient or guardian complains of a rash, raised, papular, itchy, swelling. The cp complaints affect the left arm and right arm. Context: resulted from unknown cause. 16:15 Onset: The symptoms/episode began/occurred 1 week(s) ago. Treatment prior to arrival cp includes: no previous treatment. Historical: - Allergies: 15:28 PENICILLINS; aa5 - PMHx: 15:28 Asthma; aa5 - Immunization history:: Client reports having NOT received the Covid vaccine. Flu vaccine is not up to date. - Social history:: Smoking status: Patient denies any tobacco usage or history of. ROS: 16:18 Eyes: Negative for injury, pain, redness, and discharge. cp 16:18 Constitutional: Negative for body aches, chills, fever, poor PO intake. 16:18 ENT: Negative for drainage from ear(s), ear pain, sore throat, difficulty swallowing, difficulty handling secretions. 16:18 Cardiovascular: Negative for chest pain. 16:18 Respiratory: Negative for cough, shortness of breath, wheezing. 16:18 Skin: Positive for rash, swelling, of the right arm and left arm. 16:18 Neuro: Negative for altered mental status, headache, weakness. 16:18 All other systems are negative. Exam: 16:19 Head/Face: Normocephalic, atraumatic. cp 16:19 Constitutional: The patient appears in no acute distress, alert, awake, non-toxic, well developed, well nourished. 16:19 Chest/axilla: Inspection: normal. 16:19 Cardiovascular: Rate: normal, Rhythm: regular. 16:19 Respiratory: the patient does not display signs of respiratory distress, Respirations: normal, no use of accessory muscles, no retractions, labored breathing, is not present, Breath sounds: are clear throughout, no decreased breath sounds, no stridor, no wheezing. 16:19 Skin: rash can be described as papular, raised, on the right arm and left arm. Vital Signs: 15:26 BP 130 / 76; Pulse 60; Resp 16 S; Temp 97.8(TE); Pulse Ox 100% on R/A; Weight 68.95 kg aa5 (R); Height 5 ft. 9 in. (175.26 cm) (R); 15:26 Body Mass Index 22.45 (68.95 kg, 175.26 cm) aa5 MDM: 16:21 Patient medically screened. cp 16:21 Data reviewed: vital signs, nurses notes, and as a result, I will discharge patient. 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 Administered Medications: 16:33 Drug: SOLU-Medrol (methylPREDNISolone sodium succinate) 125 mg Route: IM; Site: right aa5 deltoid; 16:34 Follow up: Response: Medication administered at discharge. aa5 Disposition: 10/27 06:27 Co-signature as Attending Physician, Sumit Qiu MD I agree with the assessment and dory plan of care. Disposition Summary: 10/26/20 16:21 Discharge Ordered Location: Home cp Problem: new cp Symptoms: are unchanged cp Condition: Stable cp Diagnosis - Dermatitis, unspecified cp Followup: cp - With: David Saldaña MD - When: 2 - 3 days - Reason: Worsening of condition Discharge Instructions: - Discharge Summary Sheet cp - Contact Dermatitis cp Forms: - Medication Reconciliation Form cp - Thank You Letter cp - Antibiotic Education cp - Prescription Opioid Use cp Prescriptions: - Prednisone 20 mg Oral Tablet - take 3 tablets by ORAL route once daily for 5 days; 15 tablet; Refills: 0, cp Product Selection Permitted - Pepcid 20 mg Oral Tablet - take 1 tablet by ORAL route every 12 hours for 5 days; 10 tablet; Refills: 0, cp Product Selection Permitted - Triamcinolone Acetonide 0.1 % Topical Ointment - apply 1 application by TOPICAL route every 12 hours As needed apply to area of cp rash except face; 1 tube; Refills: 0, Product Selection Permitted Signatures: Sumit Qiu MD MD cha Calderon, Audri RN RN aa5 Sumit Suresh PA PA cp
[2020-10-26] MEDS ORDERED: METHYLPREDNISOLONE 125 MG INJ ONE (16:43)
[2020-10-26 23:24] VITALS: BP 130/76; TEMP 97.8; O2SAT 100
== END 2020-10-26 16:34 | disposition home or self-care (01) ==
LOC: ER 15:00
DX: L30.9 Dermatitis, unspecified (principal); Z88.0 Allergy status to penicillin
CPT/HCPCS: 96372; 99283; J2930

== ENCOUNTER 2020-11-19 03:33 | Emergency (ER) | payer SELFPAY ==
[2020-11-19] MEDS ORDERED: ALBUTEROL 2.5 MG/3 ML NEB SOL ONE (04:27)
[2020-11-19] MEDS ORDERED: predniSONE 20 MG TAB ONE (04:27)
[2020-11-19] MEDS ORDERED: IPRATROPIUM BROM 0.5MG/2.5ML ONE (04:27)
--- NOTE | 2020-11-19 04:48 | ER ---
Nurse's Notes [facility] Name: Manish Luis Jr Age: 25 yrs Sex: Male : 1995 Arrival Date: 11/19/2020 Time: 03:36 Bed 12 Private MD: Diagnosis: Unspecified asthma with (acute) exacerbation Presentation: 11/19 03:50 Chief complaint: Patient states: woke up having an asthma attack, does not have the em breathing treatment machine but has the solution, inhaler ran out, denies fever. Coronavirus screen: Client denies travel out of the [place] in the last 14 days. Ebola Screen: Patient negative for fever greater than or equal to 101.5 degrees Fahrenheit, and additional compatible Ebola Virus Disease symptoms Patient denies exposure to infectious person. Patient denies travel to an Ebola-affected area in the 21 days before illness onset. No symptoms or risks identified at this time. Initial Sepsis Screen: Does the patient meet any 2 criteria? No. Patient's initial sepsis screen is negative. Does the patient have a suspected source of infection? No. Patient's initial sepsis screen is negative. Risk Assessment: Do you want to hurt yourself or someone else? Patient reports no desire to harm self or others. Onset of symptoms was November 19, 2020. 03:50 Method Of Arrival: Ambulatory em 03:50 Acuity: REYNA 4 em Historical: - Allergies: 03:53 PENICILLINS; em - Home Meds: 03:53 Albuterol Inhl [Active]; em - PMHx: 03:53 Asthma; em - PSHx: 03:53 None; em - Immunization history:: Adult Immunizations not up to date, Client reports having NOT received the Covid vaccine. - Social history:: Smoking status: Patient reports the use of cigarette tobacco products, denies chronic smoking, but will smoke occasionally. Screenin:57 Abuse screen: Denies threats or abuse. Nutritional screening: No deficits noted. em Tuberculosis screening: No symptoms or risk factors identified. Fall Risk None identified. Assessment: 03:50 General: Appears in no apparent distress. comfortable, Behavior is calm, cooperative, em Denies fever. Pain: Denies pain. Neuro: Level of Consciousness is awake, alert, obeys commands, Oriented to person, place, time, situation, Appropriate for age. Cardiovascular: Capillary refill < 3 seconds Patient's skin is warm and dry. Respiratory: Reports shortness of breath Airway is patent Respiratory effort is even, unlabored, Respiratory pattern is regular, symmetrical. Derm: Skin is intact, is healthy with good turgor, Skin is pink, warm \T\ dry. Musculoskeletal: Capillary refill < 3 seconds, Range of motion: intact in all extremities. 04:58 Reassessment: Patient appears in no apparent distress at this time. Patient and/or em family updated on plan of care and expected duration. Pain level reassessed. Patient is alert, oriented x 3, equal unlabored respirations, skin warm/dry/pink. Vital Signs: 03:50 BP 110 / 69; Pulse 62; Resp 18; Temp 98.2; Pulse Ox 98% on R/A; Weight 68.04 kg; Height em 5 ft. 10 in. (177.80 cm); Pain 0/10; 03:50 Body Mass Index 21.52 (68.04 kg, 177.80 cm) em ED Course: 03:36 Patient arrived in ED. bp1 03:52 Triage completed. em 03:53 Arm band placed on. em 03:54 Mario Lee MD is Attending Physician. mh7 03:57 Sid Burnett, SANYA is Primary Nurse. em 03:57 Patient has correct armband on for positive identification. em 04:46 George Mckay MD is Referral Physician. mh7 04:57 No provider procedures requiring assistance completed. Patient did not have IV access em during this emergency room visit. Administered Medications: 04:10 Drug: predniSONE 60 mg Route: PO; em 04:52 Follow up: Response: No adverse reaction; Marked relief of symptoms em 04:10 Drug: Albuterol 2.5 mg Route: Inhalation; em 04:52 Follow up: Response: No adverse reaction; Marked relief of symptoms em 04:10 Drug: AtroVENT (ipratropium) Aerosol 0.5 mg Route: Inhalation; em 04:52 Follow up: Response: No adverse reaction; Marked relief of symptoms em Outcome: 04:48 Discharge ordered by . mh7 04:57 Discharged to home ambulatory. em 04:57 Condition: stable 04:57 Discharge instructions given to patient, Instructed on discharge instructions, follow up and referral plans. medication usage, Demonstrated understanding of instructions, follow-up care, medications, Prescriptions given X 3. 04:58 Patient left the ED. em Signatures: Sid Burnett RN RN em Paniauga, Brittany bp1 Holmes, Maurice, MD MD mh7
--- NOTE | 2020-11-19 04:48 | EDPHYS ---
Physician Documentation [facility] Name: Manish Luis Jr Age: 25 yrs Sex: Male : 1995 Arrival Date: 11/19/2020 Time: 03:36 Bed 12 Private MD: ED Physician Mario Lee HPI: 11/19 03:59 This 25 yrs old Black Male presents to ER via Ambulatory with complaints of Asthma mh7 Exacerbation. 03:59 The patient presents to the emergency department with wheezing, Current therapy: mh7 albuterol inhaler, albuterol nebs, that began after exposure to dust, the patient was reported to have audible wheezing, Pre-hospital care: none, Inhaler ran out and nebulizer machine is broken.. Onset: The symptoms/episode began/occurred today, at 02:30. Modifying factors: The symptoms are alleviated by nothing, the symptoms are aggravated by nothing. Associated signs and symptoms: Pertinent negatives: chest pain, choking, fever, headache, nausea, palpitations, rash, vomiting. Severity of symptoms: At their worst the symptoms were mild today, in the emergency department the symptoms are unchanged. The patient has experienced similar episodes in the past, multiple times. Historical: - Allergies: 03:53 PENICILLINS; em - Home Meds: 03:53 Albuterol Inhl [Active]; em - PMHx: 03:53 Asthma; em - PSHx: 03:53 None; em - Immunization history:: Adult Immunizations not up to date, Client reports having NOT received the Covid vaccine. - Social history:: Smoking status: Patient reports the use of cigarette tobacco products, denies chronic smoking, but will smoke occasionally. ROS: 03:59 Constitutional: Negative for fever, chills, and weight loss, Eyes: Negative for injury, mh7 pain, redness, and discharge, ENT: Negative for injury, pain, and discharge, Neck: Negative for injury, pain, and swelling, Cardiovascular: Negative for chest pain, palpitations, and edema, Abdomen/GI: Negative for abdominal pain, nausea, vomiting, diarrhea, and constipation, Back: Negative for injury and pain, : Negative for injury, bleeding, discharge, and swelling, MS/Extremity: Negative for injury and deformity, Skin: Negative for injury, rash, and discoloration, Neuro: Negative for headache, weakness, numbness, tingling, and seizure, Psych: Negative for depression, anxiety, suicide ideation, homicidal ideation, and hallucinations, Allergy/Immunology: Negative for hives, rash, and allergies, Endocrine: Negative for neck swelling, polydipsia, polyuria, polyphagia, and marked weight changes, Hematologic/Lymphatic: Negative for swollen nodes, abnormal bleeding, and unusual bruising. Exam: 03:59 Constitutional: This is a well developed, well nourished patient who is awake, alert, mh7 and in no acute distress. Head/Face: Normocephalic, atraumatic. Eyes: Pupils equal round and reactive to light, extra-ocular motions intact. Lids and lashes normal. Conjunctiva and sclera are non-icteric and not injected. Cornea within normal limits. Periorbital areas with no swelling, redness, or edema. Neck: Trachea midline, no thyromegaly or masses palpated, and no cervical lymphadenopathy. Supple, full range of motion without nuchal rigidity, or vertebral point tenderness. No Meningismus. Chest/axilla: Normal chest wall appearance and motion. Nontender with no deformity. No lesions are appreciated. Cardiovascular: Regular rate and rhythm with a normal S1 and S2. No gallops, murmurs, or rubs. Normal PMI, no JVD. No pulse deficits. 03:59 Abdomen/GI: Soft, non-tender, with normal bowel sounds. No distension or tympany. No guarding or rebound. No evidence of tenderness throughout. Back: No spinal tenderness. No costovertebral tenderness. Full range of motion. Skin: Warm, dry with normal turgor. Normal color with no rashes, no lesions, and no evidence of cellulitis. MS/ Extremity: Pulses equal, no cyanosis. Neurovascular intact. Full, normal range of motion. Neuro: Awake and alert, GCS 15, oriented to person, place, time, and situation. Cranial nerves II-XII grossly intact. Motor strength 5/5 in all extremities. Sensory grossly intact. Cerebellar exam normal. Normal gait. Psych: Awake, alert, with orientation to person, place and time. Behavior, mood, and affect are within normal limits. 03:59 Respiratory: the patient does not display signs of respiratory distress, Respirations: prolonged exhalation, that is mild, Breath sounds: wheezing: expiratory that is mild, is scattered, Respiratory rate: 18 Vital Signs: 03:50 BP 110 / 69; Pulse 62; Resp 18; Temp 98.2; Pulse Ox 98% on R/A; Weight 68.04 kg; Height em 5 ft. 10 in. (177.80 cm); Pain 0/10; 03:50 Body Mass Index 21.52 (68.04 kg, 177.80 cm) em MDM: 04:45 Differential diagnosis: acute asthma, exercise-induced asthma, reactive airway. Data [facility] reviewed: vital signs, nurses notes. Data interpreted: Pulse oximetry: on room air is 98 %. Interpretation: normal. Counseling: I had a detailed discussion with the patient and/or guardian regarding: the historical points, exam findings, and any diagnostic results supporting the discharge/admit diagnosis, the need for outpatient follow up, to return to the emergency department if symptoms worsen or persist or if there are any questions or concerns that arise at home. Response to treatment: the patient's symptoms have resolved after treatment, the patient's blood pressure is in an acceptable range, mental status has returned to baseline, the patient no longer shows bradycardia, the patient is not short of breath, the patient is not tachycardic, the patient's pain is gone, the patient's temperature has normalized, the patient is now symptom free, patient is well hydrated. 04:48 Patient medically screened. [facility] Administered Medications: 04:10 Drug: predniSONE 60 mg Route: PO; em 04:52 Follow up: Response: No adverse reaction; Marked relief of symptoms em 04:10 Drug: Albuterol 2.5 mg Route: Inhalation; em 04:52 Follow up: Response: No adverse reaction; Marked relief of symptoms em 04:10 Drug: AtroVENT (ipratropium) Aerosol 0.5 mg Route: Inhalation; em 04:52 Follow up: Response: No adverse reaction; Marked relief of symptoms em Disposition Summary: 11/19/20 04:48 Discharge Ordered Location: Home [facility] Problem: an acute exacerbation [facility] Symptoms: have improved [facility] Condition: Stable [facility] Diagnosis - Unspecified asthma with (acute) exacerbation [facility] Followup: [facility] - With: Private Physician - When: 1 - 2 days - Reason: Worsening of condition, Recheck today's complaints, Continuance of care, Re-evaluation by your physician Followup: [facility] - With: George Mckay MD - When: 1 - 2 days - Reason: Worsening of condition, Recheck today's complaints Discharge Instructions: - Discharge Summary Sheet [facility] - Asthma, Adult [facility] Forms: - Medication Reconciliation Form [facility] - Thank You Letter [facility] - Antibiotic Education [facility] - Prescription Opioid Use [facility] Prescriptions: - albuterol sulfate 90 mcg/actuation Inhalation HFA aerosol inhaler - inhale 2 puff by INHALATION route every 4-6 hours As needed; 1 Inhaler; [facility] Refills: 0, Product Selection Permitted - Prednisone 20 mg Oral Tablet - take 2 tablets by ORAL route once daily for 5 days; 10 tablet; Refills: 0, [facility] Product Selection Permitted Signatures: Sid Burnett RN RN Mario Alvarado MD MD [facility]
[2020-11-19 05:05] VITALS: BP 110/69; TEMP 98.2; O2SAT 98
== END 2020-11-19 04:58 | disposition home or self-care (01) ==
LOC: ER 03:33
DX: J45.901 Unspecified asthma with (acute) exacerbation (principal); F17.210 Nicotine dependence, cigarettes, uncomplicated; Z88.0 Allergy status to penicillin
CPT/HCPCS: 99284; J7512

== ENCOUNTER 2020-11-28 05:36 | Emergency (ER) | payer SELFPAY ==
--- NOTE | 2020-11-28 06:25 | EDPHYS ---
Physician Documentation [facility] Name: Manish Luis Jr Age: 25 yrs Sex: Male : 1995 Arrival Date: 11/28/2020 Time: 05:37 Bed 12 Private MD: ED Physician Alex Cota HPI: 11/28 06:21 This 25 yrs old Black Male presents to ER via Ambulatory with complaints of Asthma jr8 Exacerbation, Chest Pain. 06:21 The patient presents to the emergency department with wheezing, Current therapy: jr8 albuterol inhaler, that began without any particular precipitating event, the patient was reported to have chest tightness, trouble breathing. Onset: The symptoms/episode began/occurred acutely, today. Modifying factors: The symptoms are alleviated by prescription meds, the symptoms are aggravated by exertion. Associated signs and symptoms: The patient has no apparent associated signs or symptoms. Severity of symptoms: At their worst the symptoms were mild in the emergency department the symptoms are unchanged. The patient has experienced similar episodes in the past, several times. The patient has not recently seen a physician. Patient stated that his machine and inhalers are at his father's. Was unable to get them so came to the emergency room for treatment. Will be able to get them later this morning.. Historical: - Allergies: 06:19 PENICILLINS; em - PMHx: 06:19 Asthma; em - Immunization history:: Client reports having NOT received the Covid vaccine. - Social history:: Smoking status: Patient denies any tobacco usage or history of. ROS: 06:21 Eyes: Negative for injury, pain, redness, and discharge, ENT: Negative for injury, jr8 pain, and discharge, Neck: Negative for injury, pain, and swelling, Cardiovascular: Negative for chest pain, palpitations, and edema, Abdomen/GI: Negative for abdominal pain, nausea, vomiting, diarrhea, and constipation, Back: Negative for injury and pain, MS/Extremity: Negative for injury and deformity, Skin: Negative for injury, rash, and discoloration, Neuro: Negative for headache, weakness, numbness, tingling, and seizure. 06:21 Respiratory: Positive for shortness of breath, wheezing. Exam: 06:21 Constitutional: This is a well developed, well nourished patient who is awake, alert, jr8 and in no acute distress. ENT: Nares patent. No nasal discharge, no septal abnormalities noted. Tympanic membranes are normal and external auditory canals are clear. Oropharynx with no redness, swelling, or masses, exudates, or evidence of obstruction, uvula midline. Mucous membranes moist. Cardiovascular: Regular rate and rhythm with a normal S1 and S2. No gallops, murmurs, or rubs. Normal PMI, no JVD. No pulse deficits. Abdomen/GI: Soft, non-tender, with normal bowel sounds. No distension or tympany. No guarding or rebound. No evidence of tenderness throughout. Skin: Warm, dry with normal turgor. Normal color with no rashes, no lesions, and no evidence of cellulitis. MS/ Extremity: Pulses equal, no cyanosis. Neurovascular intact. Full, normal range of motion. Neuro: Awake and alert, GCS 15, oriented to person, place, time, and situation. Motor strength 5/5 in all extremities. Sensory grossly intact. 06:21 Respiratory: the patient does not display signs of respiratory distress, Respirations: normal, Breath sounds: wheezing: expiratory that is moderate, is heard diffusely. Vital Signs: 06:18 BP 117 / 68; Pulse 86; Resp 20; Temp 97.9; Pulse Ox 97% on R/A; Weight 68.04 kg; Height em 5 ft. 10 in. (177.80 cm); 06:18 Body Mass Index 21.52 (68.04 kg, 177.80 cm) em MDM: 06:21 Patient medically screened. [facility] 06:24 Data reviewed: vital signs, nurses notes, and as a result, I will discharge patient. [facility] Data interpreted: Pulse oximetry: on room air is 97 %. Interpretation: normal. Counseling: I had a detailed discussion with the patient and/or guardian regarding: the historical points, exam findings, and any diagnostic results supporting the discharge/admit diagnosis, the need for outpatient follow up, a family practitioner, to return to the emergency department if symptoms worsen or persist or if there are any questions or concerns that arise at home. Response to treatment: the patient's symptoms have markedly improved after treatment. Administered Medications: 06:27 Drug: Albuterol 2.5 mg Route: Inhalation; em 06:28 Drug: Albuterol 2.5 mg Route: Inhalation; em 06:45 Follow up: Response: No adverse reaction em 06:28 Drug: Albuterol 2.5 mg Route: Inhalation; em 06:28 Drug: SOLU-Medrol (methylPREDNISolone sodium succinate) 125 mg Route: IM; Site: left em deltoid; 06:45 Follow up: Response: No adverse reaction em Disposition: 19:15 Co-signature as Attending Physician, Alex Cota MD. ma2 Disposition Summary: 11/28/20 06:25 Discharge Ordered Location: Home jr8 Problem: new jr8 Symptoms: have improved jr8 Condition: Stable jr8 Diagnosis - Mild intermittent asthma with (acute) exacerbation jr8 Followup: jr8 - With: Private Physician - When: 2 - 3 days - Reason: Recheck today's complaints, Continuance of care, Re-evaluation by your physician Discharge Instructions: - Discharge Summary Sheet jr8 - Asthma, Adult jr8 Forms: - Medication Reconciliation Form jr8 - Thank You Letter jr8 - Work release form em - Antibiotic Education jr8 - Prescription Opioid Use jr8 Prescriptions: - Prednisone 20 mg Oral Tablet - take 1 tablet by ORAL route once daily for 5 days; 5 tablet; Refills: 0, jr8 Product Selection Permitted Signatures: Sid Burnett RN RN em Stephen Gao PA PA jr8 Alex Cota MD MD ma2
--- NOTE | 2020-11-28 06:25 | ER ---
Nurse's Notes [facility] Name: Manish Luis Jr Age: 25 yrs Sex: Male : 1995 Arrival Date: 11/28/2020 Time: 05:37 Bed 12 Private MD: Diagnosis: Mild intermittent asthma with (acute) exacerbation Presentation: 11/28 06:18 Chief complaint: Patient states: asthma attack at 3 AM, reports forgetting his inhaler em at his fathers house, had to use a friends, denies fever. Coronavirus screen: Vaccine status: Patient reports being unvaccinated. Ebola Screen: Patient negative for fever greater than or equal to 101.5 degrees Fahrenheit, and additional compatible Ebola Virus Disease symptoms Patient denies exposure to infectious person. Patient denies travel to an Ebola-affected area in the 21 days before illness onset. No symptoms or risks identified at this time. Initial Sepsis Screen: Does the patient meet any 2 criteria? No. Patient's initial sepsis screen is negative. Does the patient have a suspected source of infection? No. Patient's initial sepsis screen is negative. Risk Assessment: Do you want to hurt yourself or someone else?. Onset of symptoms was November 28, 2020. 06:18 Method Of Arrival: Ambulatory em 06:18 Acuity: REYNA 4 em Historical: - Allergies: 06:19 PENICILLINS; em - PMHx: 06:19 Asthma; em - Immunization history:: Client reports having NOT received the Covid vaccine. - Social history:: Smoking status: Patient denies any tobacco usage or history of. Screenin:18 Abuse screen: Denies threats or abuse. Nutritional screening: No deficits noted. em Tuberculosis screening: No symptoms or risk factors identified. Fall Risk None identified. Assessment: 06:28 General: Appears in no apparent distress. comfortable, slender, well groomed, well em developed, well nourished, Behavior is calm, cooperative, appropriate for age. Pain: Denies pain. Pain does not radiate. Neuro: Level of Consciousness is awake, alert, obeys commands, Oriented to person, place, time, situation, Appropriate for age. Cardiovascular: Capillary refill < 3 seconds Patient's skin is warm and dry. Respiratory: Reports pain with respiration Airway is patent Respiratory effort is even, unlabored, Respiratory pattern is regular, symmetrical, Breath sounds with wheezes bilaterally. Onset: The symptoms/episode began/occurred this morning, the patient has mild shortness of breath. Derm: Skin is intact, is healthy with good turgor, Skin is pink, warm \T\ dry. Musculoskeletal: Capillary refill < 3 seconds, Range of motion: intact in all extremities. Vital Signs: 06:18 BP 117 / 68; Pulse 86; Resp 20; Temp 97.9; Pulse Ox 97% on R/A; Weight 68.04 kg; Height em 5 ft. 10 in. (177.80 cm); 06:18 Body Mass Index 21.52 (68.04 kg, 177.80 cm) em ED Course: 05:37 Patient arrived in ED. bp1 06:18 Patient has correct armband on for positive identification. Pulse ox on. em 06:19 Triage completed. em 06:19 Arm band placed on. em 06:20 Sid Burnett RN is Primary Nurse. em 06:20 Stephen Gao PA is PHCP. jr8 06:20 Alex Cota MD is Attending Physician. jr8 06:28 No provider procedures requiring assistance completed. Patient did not have IV access em during this emergency room visit. Patient maintains SpO2 saturation greater than 95% on room air. Administered Medications: 06:27 Drug: Albuterol 2.5 mg Route: Inhalation; em 06:28 Drug: Albuterol 2.5 mg Route: Inhalation; em 06:45 Follow up: Response: No adverse reaction em 06:28 Drug: Albuterol 2.5 mg Route: Inhalation; em 06:28 Drug: SOLU-Medrol (methylPREDNISolone sodium succinate) 125 mg Route: IM; Site: left em deltoid; 06:45 Follow up: Response: No adverse reaction em Outcome: 06:25 Discharge ordered by . jr8 06:47 Discharged to home ambulatory. em 06:47 Condition: stable 06:47 Discharge instructions given to patient, Instructed on discharge instructions, follow up and referral plans. medication usage, Demonstrated understanding of instructions, follow-up care, medications, Prescriptions given X 1. 06:47 Patient left the ED. em Signatures: Sid Burnett RN RN em Stephen Gao PA PA jr8 Shilpi Alvarado bp1
[2020-11-28] MEDS ORDERED: METHYLPREDNISOLONE 125 MG INJ ONE (06:45)
[2020-11-28] MEDS ORDERED: ALBUTEROL 2.5 MG/3 ML NEB SOL ONE (06:46)
[2020-11-28 07:02] VITALS: BP 117/68; TEMP 97.9; O2SAT 97
== END 2020-11-28 06:47 | disposition home or self-care (01) ==
LOC: ER 05:36
DX: J45.21 Mild intermittent asthma with (acute) exacerbation (principal); Z88.0 Allergy status to penicillin
CPT/HCPCS: 96372; 99284; J2930

== ENCOUNTER 2021-08-10 05:57 | Emergency (ER) | payer SELFPAY ==
[2021-08-10] MEDS ORDERED: IPRATROPIUM BROM 0.5MG/2.5ML ONE (06:28)
[2021-08-10] MEDS ORDERED: AZITHROMYCIN 250 MG TAB ONE (06:28)
[2021-08-10] MEDS ORDERED: ALBUTEROL 2.5 MG/3 ML NEB SOL ONE (06:28)
[2021-08-10] MEDS ORDERED: predniSONE 20 MG TAB ONE (06:28)
--- NOTE | 2021-08-10 07:01 | ER ---
Nurse's Notes [facility] Name: Manish Luis Jr Age: 25 yrs Sex: Male : 1995 Arrival Date: 08/10/2021 Time: 05:58 Bed 6 Private MD: Diagnosis: Dyspnea;Mild intermittent asthma Presentation: 08/10 06:14 Chief complaint: Patient states: "I'm having a headache, body aches, and a cough that as6 is triggering my asthma". Coronavirus screen: At this time, the client does not indicate any symptoms associated with coronavirus-19. Ebola Screen: No symptoms or risks identified at this time. Initial Sepsis Screen: Does the patient meet any 2 criteria? No. Patient's initial sepsis screen is negative. Does the patient have a suspected source of infection? No. Patient's initial sepsis screen is negative. Risk Assessment: Do you want to hurt yourself or someone else? Patient reports no desire to harm self or others. Onset of symptoms is unknown. 06:14 Method Of Arrival: Ambulatory as6 06:14 Acuity: REYNA 3 as6 Historical: - Allergies: 06:17 PENICILLINS; as6 - Home Meds: 06:17 None [Active]; as6 - PMHx: 06:17 Asthma; as6 - PSHx: 06:17 None; as6 - Immunization history:: Adult Immunizations up to date, Client reports having NOT received the Covid vaccine. - Social history:: Smoking status: Patient/guardian denies using tobacco, Stopped _ months ago 2. Screenin:29 Abuse screen: Denies threats or abuse. Denies injuries from another. Nutritional as6 screening: No deficits noted. Tuberculosis screening: No symptoms or risk factors identified. Fall Risk None identified. Assessment: 06:28 General: Appears in no apparent distress. Behavior is calm, cooperative. General: as6 Reports chills for feeling ill for fatigue for. Pain: Complains of pain in head. Neuro: Level of Consciousness is awake, alert, obeys commands, Oriented to person, place, time, situation. Neuro: Reports headache. Cardiovascular: JVD is absent Patient's skin is warm and dry. Respiratory: Reports cough that is Respiratory effort is even, unlabored, Respiratory pattern is regular, symmetrical. Vital Signs: 06:14 BP 126 / 82; Pulse 97; Resp 18 S; Temp 99.3(TE); Pulse Ox 98% on R/A; Weight 72.57 kg as6 (R); Height 5 ft. 10 in. (177.80 cm) (R); Pain 5/10; 06:14 Body Mass Index 22.96 (72.57 kg, 177.80 cm) as6 ED Course: 05:58 Patient arrived in ED. kz 05:59 Sumit Qiu MD is Attending Physician. [facility] 06:01 Jed Muse, RN is Primary Nurse. as6 06:17 Triage completed. as6 06:17 Arm band placed on. as6 06:29 Bed in low position. Call light in reach. Side rails up X 1. Pulse ox on. NIBP on. as6 06:32 Chest Single View XRAY In Process Unspecified. EDMS 07:00 George Mckay MD is Referral Physician. [facility] 07:07 Primary Nurse role handed off by Jed Muse RN 07:30 No provider procedures requiring assistance completed. Patient did not have IV access vg1 during this emergency room visit. Administered Medications: 06:27 Drug: Zithromax (azithromycin) 500 mg Route: PO; as6 06:27 Drug: Albuterol - atroVENT (ipratropium) (3:1) (2.5 mg - 0.5 mg) 3 ml Route: Nebulizer; as6 06:27 Drug: predniSONE 60 mg Route: PO; as6 Medication: 06:30 VIS not applicable for this client. as6 Outcome: 07:00 Discharge ordered by . [facility] 07:30 Discharged to home ambulatory. vg1 07:30 Condition: good 07:30 Discharge instructions given to patient, Instructed on discharge instructions, follow up and referral plans. medication usage, Demonstrated understanding of instructions, follow-up care, medications, Prescriptions given X 4. 07:30 Patient left the ED. vg1 Signatures: Dispatcher [employer] EDWV Sumit Qiu MD MD cha Botello, Elizabeth eb Garcia, Victoria, RN RN vg1 Jed Muse, SANYA RN as6 Jessica Lebron
--- NOTE | 2021-08-10 07:01 | EDPHYS ---
Physician Documentation [facility] Name: Manish Luis Jr Age: 25 yrs Sex: Male : 1995 Arrival Date: 08/10/2021 Time: 05:58 Bed 6 Private MD: ED Physician Sumit Qiu HPI: 08/10 06:17 This 25 yrs old Black Male presents to ER via Ambulatory with complaints of Asthma dory Exacerbation, Headache. 06:17 The patient presents to the emergency department with wheezing, Current therapy: dory albuterol nebs. Onset: The symptoms/episode began/occurred 1 day(s) ago. Modifying factors: The symptoms are alleviated by inhaler, nebulizer treatment. Associated signs and symptoms: The patient has no apparent associated signs or symptoms. Severity of symptoms: At their worst the symptoms were mild in the emergency department the symptoms are unchanged. The patient has not experienced similar symptoms in the past. Historical: - Allergies: 06:17 PENICILLINS; as6 - Home Meds: 06:17 None [Active]; as6 - PMHx: 06:17 Asthma; as6 - PSHx: 06:17 None; as6 - Immunization history:: Adult Immunizations up to date, Client reports having NOT received the Covid vaccine. - Social history:: Smoking status: Patient/guardian denies using tobacco, Stopped _ months ago 2. ROS: 06:18 Constitutional: Negative for fever, chills, and weight loss, Eyes: Negative for injury, dory pain, redness, and discharge, ENT: Negative for injury, pain, and discharge, Neck: Negative for injury, pain, and swelling, Cardiovascular: Negative for chest pain, palpitations, and edema, Abdomen/GI: Negative for abdominal pain, nausea, vomiting, diarrhea, and constipation, Back: Negative for injury and pain, : Negative for injury, bleeding, discharge, and swelling, MS/Extremity: Negative for injury and deformity, Skin: Negative for injury, rash, and discoloration, Neuro: Negative for headache, weakness, numbness, tingling, and seizure, Psych: Negative for depression, anxiety, suicide ideation, homicidal ideation, and hallucinations, Allergy/Immunology: Negative for hives, rash, and allergies, Endocrine: Negative for neck swelling, polydipsia, polyuria, polyphagia, and marked weight changes, Hematologic/Lymphatic: Negative for swollen nodes, abnormal bleeding, and unusual bruising. 06:18 Respiratory: Positive for cough, wheezing, inspiratory, expiratory. Exam: 06:18 Constitutional: This is a well developed, well nourished patient who is awake, alert, dory and in no acute distress. Head/Face: Normocephalic, atraumatic. Eyes: Pupils equal round and reactive to light, extra-ocular motions intact. Lids and lashes normal. Conjunctiva and sclera are non-icteric and not injected. Cornea within normal limits. Periorbital areas with no swelling, redness, or edema. ENT: Nares patent. No nasal discharge, no septal abnormalities noted. Tympanic membranes are normal and external auditory canals are clear. Oropharynx with no redness, swelling, or masses, exudates, or evidence of obstruction, uvula midline. Mucous membranes moist. Neck: Trachea midline, no thyromegaly or masses palpated, and no cervical lymphadenopathy. Supple, full range of motion without nuchal rigidity, or vertebral point tenderness. No Meningismus. Chest/axilla: Normal chest wall appearance and motion. Nontender with no deformity. No lesions are appreciated. Cardiovascular: Regular rate and rhythm with a normal S1 and S2. No gallops, murmurs, or rubs. Normal PMI, no JVD. No pulse deficits. Abdomen/GI: Soft, non-tender, with normal bowel sounds. No distension or tympany. No guarding or rebound. No evidence of tenderness throughout. Back: No spinal tenderness. No costovertebral tenderness. Full range of motion. Male : Normal genitalia with no discharge or lesions. Skin: Warm, dry with normal turgor. Normal color with no rashes, no lesions, and no evidence of cellulitis. MS/ Extremity: Pulses equal, no cyanosis. Neurovascular intact. Full, normal range of motion. Neuro: Awake and alert, GCS 15, oriented to person, place, time, and situation. Cranial nerves II-XII grossly intact. Motor strength 5/5 in all extremities. Sensory grossly intact. Cerebellar exam normal. Normal gait. Psych: Awake, alert, with orientation to person, place and time. Behavior, mood, and affect are within normal limits. 06:18 Respiratory: mild respiratory distress is noted, Respirations: normal, no acute changes, Breath sounds: bronchial sounds, decreased breath sounds, rhonchi, that are mild, stridor, is not appreciated, + upper airway congestion. wheezing: inspiratory expiratory 06:18 Musculoskeletal/extremity: Extremities: all appear grossly normal, with no appreciated pain with palpation, ROM: intact in all extremities, Circulation is intact in all extremities. Sensation intact. Compartment Syndrome exam of affected extremity: is normal. no pain, no numbness, no tingling, no sensation deficit, no palor, no weak pulses, DVT Exam: No signs of deep vein thrombosis. no pain, no swelling, no tenderness, negative Homans' sign noted on exam, no appreciated bluish discoloration, no erythema, no increased warmth. Vital Signs: 06:14 BP 126 / 82; Pulse 97; Resp 18 S; Temp 99.3(TE); Pulse Ox 98% on R/A; Weight 72.57 kg as6 (R); Height 5 ft. 10 in. (177.80 cm) (R); Pain 5/10; 06:14 Body Mass Index 22.96 (72.57 kg, 177.80 cm) as6 MDM: 05:59 Patient medically screened. dory 06:20 Differential diagnosis: acute asthma, exercise-induced asthma, CHF. Antibiotic dory administration: The patient is discharged and will get outpatient antibiotics, Zithromax. Data reviewed: vital signs, nurses notes, radiologic studies. Data interpreted: nurse monitoring: not applicable for this patient encounter. rate is 97 beats/min, Pulse oximetry: is not applicable for this patient encounter. Test interpretation: by ED physician or midlevel provider: plain radiologic studies. 08/10 06:17 Order name: Chest Single View XRAY dory Administered Medications: 06:27 Drug: Zithromax (azithromycin) 500 mg Route: PO; as6 06:27 Drug: Albuterol - atroVENT (ipratropium) (3:1) (2.5 mg - 0.5 mg) 3 ml Route: Nebulizer; as6 06:27 Drug: predniSONE 60 mg Route: PO; as6 Disposition Summary: 08/10/21 07:00 Discharge Ordered Location: Home dory Problem: new dory Symptoms: have improved dory Condition: Stable dory Diagnosis - Dyspnea dory - Mild intermittent asthma dory Followup: dory - With: Private Physician - When: 2 - 3 days - Reason: Recheck today's complaints, Continuance of care, Re-evaluation by your physician Followup: [facility] - With: - When: 2 - 3 days - Reason: Recheck today's complaints, Continuance of care, Re-evaluation by your physician Discharge Instructions: - Discharge Summary Sheet [facility] - Asthma, Adult dory - Upper Respiratory Infection, Adult dory - Upper Respiratory Infection, Adult, [facility] - Asthma, Adult, [facility] Forms: - Medication Reconciliation Form [facility] - Thank You Letter [facility] - Antibiotic Education [facility] - Prescription Opioid Use [facility] Prescriptions: - albuterol sulfate 90 mcg/actuation Inhalation HFA aerosol inhaler - inhale 2 puff by INHALATION route every 6 hours; 1 Pump; Refills: 0, Product [facility] Selection Permitted - Albuterol Sulfate 2.5 mg /3 mL (0.083 %) Inhalation Solution for Nebulization - inhale 1 unit by NEBULIZATION route every 8 hours As needed; 1 box; Refills: 0, [facility] Product Selection Permitted - Zithromax Z-Horacio 250 mg Oral Tablet - take 1 tablet by ORAL route as directed for 5 days Day 1 - take two (2) tablets dory one time. Day 2, 3, 4 , 5 take one (1) tablet once daily.; 6 tablet; Refills: 0, Product Selection Permitted - Prednisone 20 mg Oral Tablet - take 2 tablets by ORAL route once daily for 6 days; 12 tablet; Refills: 0, [facility] Product Selection Permitted Signatures: Dispatcher [employer] Sumit Murry MD MD cha Slawson, Ashby, RN RN as6
--- NOTE | 2021-08-10 07:22 | RAD REPORT ---
EXAM DESCRIPTION: RAD - Chest Single View - 08/10/2021 6:30 am CLINICAL HISTORY: COUGH COMPARISON: Two view chest December 2017 TECHNIQUE: AP portable chest image was obtained 08/10/2021 6:30 am . FINDINGS: No dense airspace consolidations seen. There is a subtle increase in the interstitial noah nito of the right base compared to the 2018 study. Minimal peribronchial thickening is evident. Hilar regions are not outside of normal range and no hilar mass or lymphadenopathy suspected. Heart and vasculature are normal. No measurable pleural effusion and no pneumothorax. No acute bony abnormality seen. No acute aortic findings suspected. IMPRESSION: Subtle increased interstitial opacification right base with minimal bilateral peribronch ial thickening. Correlation is needed for any clinical or laboratory findings supporting viral infiltrate, particular ly in the right base.
[2021-08-10 07:50] VITALS: BP 126/82; TEMP 99.3; O2SAT 98
== END 2021-08-10 07:30 | disposition home or self-care (01) ==
LOC: ER 05:57
DX: J45.20 Mild intermittent asthma, uncomplicated (principal); Z88.0 Allergy status to penicillin
CPT/HCPCS: 71045; 94640; 99284; J7512

== ENCOUNTER 2021-09-21 07:48 | Emergency (ER) | payer BC, SELFPAY ==
--- NOTE | 2021-09-21 09:48 | ER ---
Nurse's Notes [facility] Name: Manish Luis Jr Age: 25 yrs Sex: Male : 1995 Arrival Date: 09/21/2021 Time: 07:51 Bed Waiting Private MD: Diagnosis: SARS-associated coronavirus as the cause of diseases classified elsewhere Presentation: 09/21 08:00 Chief complaint: Patient states: Body aches, chills, SOMERS x 2-3 days. 7 08:00 Coronavirus screen: chills, headache, muscle pain, Client presents with at least one [facility] sign or symptom that may indicate coronavirus-19. Ebola Screen: No symptoms or risks identified at this time. Initial Sepsis Screen: Does the patient meet any 2 criteria? No. Patient's initial sepsis screen is negative. Does the patient have a suspected source of infection? No. Patient's initial sepsis screen is negative. Risk Assessment: Do you want to hurt yourself or someone else? Patient reports no desire to harm self or others. Onset of symptoms was September 19, 2021. Care prior to arrival: None. 08:00 Method Of Arrival: Ambulatory [facility] 08:00 Acuity: REYNA 4 jl7 Triage Assessment: 08:00 Headache History: The patient has had previous headaches and this one is similar to 7 previous episodes. General: Appears in no apparent distress. uncomfortable, Behavior is calm, cooperative, appropriate for age. Pain: Complains of pain in all over Pain does not radiate. Pain currently is 4 out of 10 on a pain scale. Quality of pain is described as aching, Pain began 2-3 days ago. Is continuous, Also complains of sleeplessness. Neuro: Level of Consciousness is awake, alert, obeys commands, Oriented to person, place, time, situation. Cardiovascular: Patient's skin is warm and dry. Chest pain is denied. Respiratory: Airway is patent Respiratory effort is even, unlabored, Respiratory pattern is regular, symmetrical, Denies cough, shortness of breath. Derm: Skin is pink, warm \T\ dry. Historical: - Allergies: 08:12 PENICILLINS; jl7 - Home Meds: 08:12 Albuterol Inhl [Active]; jl7 - PMHx: 08:12 Asthma; jl7 - PSHx: 08:12 None; jl7 - Immunization history:: Adult Immunizations not up to date. - Social history:: Smoking status: Patient reports the use of cigarette tobacco products, denies chronic smoking, but will smoke occasionally. - Family history:: not pertinent. - Hospitalizations: : No recent hospitalization is reported. Screenin:00 Abuse screen: Denies threats or abuse. Denies injuries from another. Nutritional jl7 screening: No deficits noted. Tuberculosis screening: No symptoms or risk factors identified. Fall Risk None identified. Vital Signs: 08:00 BP 126 / 71; Pulse 88; Resp 17; Temp 97.9; Pulse Ox 100% on R/A; Weight 65.77 kg; jl7 Height 5 ft. 9 in. (175.26 cm); Pain 4/10; 08:00 Body Mass Index 21.41 (65.77 kg, 175.26 cm) jl7 ED Course: 07:51 Patient arrived in ED. am2 07:55 Calvin Pope MD is Attending Physician. rn 08:00 Arm band placed on right wrist. jl7 08:00 Patient has correct armband on for positive identification. jl7 08:07 Marce Alcocer, SANYA is Primary Nurse. jl7 08:12 Triage completed. jl7 08:15 COVID swab sent to lab. Flu and/or RSV swab sent to lab. Strep swab sent to lab. jl7 09:55 No provider procedures requiring assistance completed. Patient did not have IV access jl7 during this emergency room visit. Administered Medications: No medications were administered Medication: 09:55 VIS not applicable for this client. jl7 Outcome: 09:48 Discharge ordered by . rn 09:55 Discharged to home ambulatory. jl7 09:55 Condition: stable 09:55 Discharge instructions given to patient, Instructed on discharge instructions, follow up and referral plans. Demonstrated understanding of instructions, follow-up care. 09:55 Patient left the ED. jl7 Signatures: Calvin Pope MD MD rn Leal, Jahala, RN RN jl7 Moreno, Amanda am2
--- NOTE | 2021-09-21 09:48 | EDPHYS ---
Physician Documentation [facility] Name: Manish Luis Jr Age: 25 yrs Sex: Male : 1995 Arrival Date: 09/21/2021 Time: 07:51 Bed Waiting Private MD: ED Physician Calvin Pope HPI: 09/21 08:08 This 25 yrs old Black Male presents to ER via Unassigned with complaints of rn bodyaches,chills, Headache. 08:08 Pt reports chills, myalgias, headache, began 2 days ago, no known sick contacts. No dietetic intern. No cough or sob. No abd pain. + diarrhea. Feels fatigue. Came in because chills and myalgias had him up all night. . Onset: The symptoms/episode began/occurred 2 day(s) ago. Severity of symptoms: At their worst the symptoms were mild in the emergency department the symptoms are unchanged. The patient has not experienced similar symptoms in the past. The patient has not recently seen a physician. Historical: - Allergies: 08:12 PENICILLINS; jl7 - Home Meds: 08:12 Albuterol Inhl [Active]; jl7 - PMHx: 08:12 Asthma; jl7 - PSHx: 08:12 None; jl7 - Immunization history:: Adult Immunizations not up to date. - Social history:: Smoking status: Patient reports the use of cigarette tobacco products, denies chronic smoking, but will smoke occasionally. - Family history:: not pertinent. - Hospitalizations: : No recent hospitalization is reported. ROS: 08:08 Constitutional: + chills Eyes: Negative for injury, pain, redness, and discharge, ENT: rn Negative for injury, pain, and discharge, Neck: Negative for injury, pain, and swelling, Cardiovascular: Negative for chest pain, palpitations, and edema, Respiratory: Negative for shortness of breath, cough, wheezing, and pleuritic chest pain, Abdomen/GI: Negative for abdominal pain, nausea, vomiting, and constipation, Back: Negative for injury and pain, : Negative for injury, bleeding, discharge, and swelling, MS/Extremity: Negative for injury and deformity, Skin: Negative for injury, rash, and discoloration, Neuro: Negative for numbness, tingling, and seizure Exam: 08:08 Constitutional: This is a well developed, well nourished patient who is awake, alert, rn and in no acute distress. Head/Face: Normocephalic, atraumatic. Eyes: Periorbital areas with no swelling, redness, or edema. ENT: No stridor Neck: Trachea midline, no masses palpated, and no cervical lymphadenopathy. Supple, full range of motion without nuchal rigidity, or vertebral point tenderness. No Meningismus. Cardiovascular: Regular rate and rhythm. No pulse deficits. Respiratory: No increased work of breathing, no retractions or nasal flaring. Abdomen/GI: Soft, non-tender Skin: Warm, dry MS/ Extremity: Pulses equal, no cyanosis. Neuro: Awake and alert, GCS 15 Vital Signs: 08:00 BP 126 / 71; Pulse 88; Resp 17; Temp 97.9; Pulse Ox 100% on R/A; Weight 65.77 kg; jl7 Height 5 ft. 9 in. (175.26 cm); Pain 4/10; 08:00 Body Mass Index 21.41 (65.77 kg, 175.26 cm) jl7 MDM: 07:55 Patient medically screened. rn 09:47 Differential Diagnosis COVID. Data reviewed: vital signs, nurses notes, lab test rn result(s), and as a result, I will discharge patient. Counseling: I had a detailed discussion with the patient and/or guardian regarding: the historical points, exam findings, and any diagnostic results supporting the discharge/admit diagnosis, lab results, the need for outpatient follow up, to return to the emergency department if symptoms worsen or persist or if there are any questions or concerns that arise at home. Special discussion: I discussed with the patient/guardian in detail that at this point there is no indication for admission to the hospital. It is understood, however, that if the symptoms persist or worsen the patient needs to return immediately for re-evaluation. 09/21 08:08 Order name: SARS-COV-2 RT PCR (Document "Date of Onset" if Symptomatic); Complete Time: rn 09:48 09/21 08:08 Order name: Strep; Complete Time: 09:47 rn 09/21 08:08 Order name: Flu; Complete Time: 09:47 rn 09/21 09:02 Order name: Throat Culture EDMS Administered Medications: No medications were administered Disposition Summary: 09/21/21 09:48 Discharge Ordered Location: Home rn Problem: new rn Symptoms: have improved rn Condition: Stable rn Diagnosis - SARS-associated coronavirus as the cause of diseases classified elsewhere rn Followup: rn - With: Private Physician - When: As needed - Reason: Recheck today's complaints, Re-evaluation by your physician Discharge Instructions: - Discharge Summary Sheet rn - COVID-19 rn - 10 Things You Can Do to Manage Your COVID-19 Symptoms at Home - [facility] rn - Viral Illness, Adult rn - Prevent the Spread of COVID-19 if You Are Sick - [facility] rn Forms: - Medication Reconciliation Form rn - Thank You Letter rn - Antibiotic 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
[2021-09-21 10:17] VITALS: BP 126/71; TEMP 97.9; O2SAT 100
== END 2021-09-21 09:55 | disposition home or self-care (01) ==
LOC: ER 07:48
DX: U07.1 COVID-19 (principal); J45.909 Unspecified asthma, uncomplicated; F17.210 Nicotine dependence, cigarettes, uncomplicated; Z88.0 Allergy status to penicillin
CPT/HCPCS: 87070; 87081; 87804 ×2; 99283; U0003

== ENCOUNTER 2022-03-26 05:34 | Emergency (ER) | payer BC ==
[2022-03-26] MEDS ORDERED: predniSONE 10 MG TAB ONE (05:54)
[2022-03-26] MEDS ORDERED: LEVALBUTEROL 1.25 MG/3 ML NEB ONE (05:54)
[2022-03-26 06:57] LABS: SARS-COV-2 RT PCR NEGATIVE (NEGATIVE)
--- NOTE | 2022-03-26 07:03 | ER ---
Nurse's Notes [facility] Name: Manish Luis Jr Age: 26 yrs Sex: Male : 1995 Arrival Date: 03/26/2022 Time: 05:40 Bed 16 Private MD: Diagnosis: Unspecified asthma with (acute) exacerbation;Cough Presentation: 03/26 05:48 Chief complaint: Patient states: C/o difficulty breathing, cough, sore throat, ll3 congestion, and "over heating", since Friday. Coronavirus screen: Vaccine status: Patient reports being unvaccinated. congestion, cough unrelated to allergies, difficulty breathing, fever. Ebola Screen: No symptoms or risks identified at this time. Initial Sepsis Screen: Does the patient meet any 2 criteria? No. Patient's initial sepsis screen is negative. Does the patient have a suspected source of infection? No. Patient's initial sepsis screen is negative. Risk Assessment: Do you want to hurt yourself or someone else? Patient reports no desire to harm self or others. Onset of symptoms was March 22, 2022. 05:48 Method Of Arrival: Ambulatory ll3 05:48 Acuity: REYNA 3 ll3 Historical: - Allergies: 05:50 PENICILLINS; ll3 - Home Meds: 05:50 Flovent Inhl [Active]; ll3 - PMHx: 05:50 Asthma; ll3 - Immunization history:: Client reports having NOT received the Covid vaccine. - Social history:: Smoking status: Patient denies any tobacco usage or history of. - Family history:: not pertinent. - Hospitalizations: : No recent hospitalization is reported. Screenin:05 [facility] ED Fall Risk Assessment (Adult) History of falling in the last 3 months, aa9 including since admission No falls in past 3 months (0 pts) Confusion or Disorientation No (0 pts) Intoxicated or Sedated No (0 pts) Impaired Gait No (0 pts) Mobility Assist Device Used No (0 pt) Altered Elimination No (0 pt) Score/Fall Risk Level 0 - 2 = Low Risk. Abuse screen: Denies threats or abuse. Denies injuries from another. Nutritional screening: No deficits noted. Tuberculosis screening: No symptoms or risk factors identified. Assessment: 06:03 General: Appears in no apparent distress. slender, Behavior is calm, cooperative, aa9 appropriate for age. Pain: Complains of pain in throat. Neuro: Level of Consciousness is awake, alert, obeys commands, Oriented to person, place, time, situation. Cardiovascular: Patient's skin is warm and dry. Respiratory: Airway is patent Respiratory effort is even, unlabored. GI: No signs and/or symptoms were reported involving the gastrointestinal system. : No signs and/or symptoms were reported regarding the genitourinary system. EENT:. Derm: Skin is intact, is healthy with good turgor. 06:37 Reassessment: Patient appears in no apparent distress at this time. Patient and/or aa9 family updated on plan of care and expected duration. Pain level reassessed. Patient is alert, oriented x 3, equal unlabored respirations, skin warm/dry/pink. Vital Signs: 05:48 BP 130 / 95; Pulse 83; Resp 18; Temp 98.6(O); Pulse Ox 99% on R/A; Weight 72.57 kg (R); ll3 Height 5 ft. 9 in. (175.26 cm) (R); 06:03 BP 118 / 87; Pulse 78; Resp 20 S; Pulse Ox 100% on Nebulizer Mask; aa9 06:36 BP 135 / 91; Pulse 95; Resp 19 S; Pulse Ox 97% on R/A; aa9 07:20 BP 132 / 88; Pulse 90; Resp 18; Pulse Ox 99% on R/A; kr3 05:48 Body Mass Index 23.63 (72.57 kg, 175.26 cm) ll3 ED Course: 05:40 Patient arrived in ED. ja2 05:42 Calvin Pope MD is Attending Physician. rn 05:50 Triage completed. ll3 05:50 Arm band placed on Patient placed in an exam room, on a stretcher, on pulse oximetry. ll3 06:02 Maria M Deal, SANYA is Primary Nurse. aa9 06:05 Patient has correct armband on for positive identification. Bed in low position. Call aa9 light in reach. Pulse ox on. NIBP on. 06:05 No provider procedures requiring assistance completed. aa9 06:13 XRAY Chest (1 view) In Process Unspecified. EDMS 07:21 Patient did not have IV access during this emergency room visit. kr3 Administered Medications: 06:02 Drug: predniSONE 60 mg Route: PO; aa9 06:38 Follow up: Response: No adverse reaction aa9 06:02 Drug: Xopenex (levalbuterol) (3) 1.25 mg Route: Inhalation; aa9 06:38 Follow up: Response: No adverse reaction aa9 Medication: 06:05 VIS not applicable for this client. aa9 Outcome: 07:02 Discharge ordered by . rn 07:21 Discharged to home kr3 07:21 Condition: stable 07:21 Discharge instructions given to patient, Instructed on discharge instructions, follow up and referral plans. medication usage, Demonstrated understanding of instructions, follow-up care, medications. 07:22 Patient left the ED. kr3 Signatures: Dispatcher [employer] EDMS Calvin Pope MD MD rn Alexander, Jessica ja2 Loubet, Lynsea RN RN ll3 Maria M Deal RN RN aa9 Radha Wild RN RN kr3
--- NOTE | 2022-03-26 07:03 | EDPHYS ---
Physician Documentation [facility] Name: Manish Luis Jr Age: 26 yrs Sex: Male : 1995 Arrival Date: 03/26/2022 Time: 05:40 Bed 16 Private MD: ED Physician Calvin Pope HPI: 03/26 06:17 This 26 yrs old Black Male presents to ER via Ambulatory with complaints of Cough, Sore rn Throat, Fever, Breathing Difficulty. 06:17 The patient or guardian reports cough, described as mild, with no sputum, difficulty rn breathing, flu symptoms, low-grade fever. 06:18 Onset: The symptoms/episode began/occurred 3 day(s) ago. Severity of symptoms: At their rn worst the symptoms were mild, in the emergency department the symptoms are unchanged. Modifying factors: The symptoms are alleviated by nothing, the symptoms are aggravated by nothing. Associated signs and symptoms: Pertinent positives: fever, rhinorrhea, sore throat, Pertinent negatives: chest pain. The patient has experienced similar episodes in the past. The patient has not recently seen a physician. Historical: - Allergies: 05:50 PENICILLINS; ll3 - Home Meds: 05:50 Flovent Inhl [Active]; ll3 - PMHx: 05:50 Asthma; ll3 - Immunization history:: Client reports having NOT received the Covid vaccine. - Social history:: Smoking status: Patient denies any tobacco usage or history of. - Family history:: not pertinent. - Hospitalizations: : No recent hospitalization is reported. ROS: 06:18 Constitutional: + fever and chills Eyes: Negative for injury, pain, redness, and dehorner, Cardiovascular: Negative for chest pain, palpitations, and edema, Respiratory: + cough and wheezing Abdomen/GI: Negative for abdominal pain, nausea, vomiting, diarrhea, and constipation, MS/Extremity: Negative for injury and deformity, Skin: Negative for injury, rash, and discoloration, Neuro: Negative for headache, weakness, numbness, tingling, and seizure. Exam: 06:18 Constitutional: This is a well developed, well nourished patient who is awake, alert, rn and in no acute distress. Head/Face: Normocephalic, atraumatic. Eyes: Periorbital areas with no swelling, redness, or edema. ENT: no stridor, MMM Cardiovascular: Regular rate and rhythm. No pulse deficits. Respiratory: No retractions, faint wheezing, + mild tachypnea Skin: Warm, dry MS/ Extremity: Pulses equal, no cyanosis. Neuro: Awake and alert, GCS 15 Vital Signs: 05:48 BP 130 / 95; Pulse 83; Resp 18; Temp 98.6(O); Pulse Ox 99% on R/A; Weight 72.57 kg (R); ll3 Height 5 ft. 9 in. (175.26 cm) (R); 06:03 BP 118 / 87; Pulse 78; Resp 20 S; Pulse Ox 100% on Nebulizer Mask; aa9 06:36 BP 135 / 91; Pulse 95; Resp 19 S; Pulse Ox 97% on R/A; aa9 07:20 BP 132 / 88; Pulse 90; Resp 18; Pulse Ox 99% on R/A; kr3 05:48 Body Mass Index 23.63 (72.57 kg, 175.26 cm) ll3 MDM: 05:42 Patient medically screened. rn 07:01 Differential Diagnosis: Bronchitis Influenza. rn 07:01 Data reviewed: vital signs, nurses notes, lab test result(s), radiologic studies, plain rn films, and as a result, I will discharge patient. Counseling: I had a detailed discussion with the patient and/or guardian regarding: the historical points, exam findings, and any diagnostic results supporting the discharge/admit diagnosis, lab results, radiology results, the need for outpatient follow up, to return to the emergency department if symptoms worsen or persist or if there are any questions or concerns that arise at home. Response to treatment: the patient's symptoms have markedly improved after treatment, and as a result, I will discharge patient. Special discussion: I discussed with the patient/guardian in detail that at this point there is no indication for admission to the hospital. It is understood, however, that if the symptoms persist or worsen the patient needs to return immediately for re-evaluation. 03/26 05:49 Order name: COVID-19/FLU A+B; Complete Time: 07:00 rn 03/26 05:49 Order name: Strep; Complete Time: 07:00 rn 03/26 05:49 Order name: XRAY Chest (1 view) rn 03/26 06:41 Order name: Throat Culture EDMS Administered Medications: 06:02 Drug: predniSONE 60 mg Route: PO; aa9 06:38 Follow up: Response: No adverse reaction aa9 06:02 Drug: Xopenex (levalbuterol) (3) 1.25 mg Route: Inhalation; aa9 06:38 Follow up: Response: No adverse reaction aa9 Disposition Summary: 03/26/22 07:02 Discharge Ordered Location: Home rn Problem: new rn Symptoms: have improved rn Condition: Stable rn Diagnosis - Unspecified asthma with (acute) exacerbation rn - Cough rn Followup: rn - With: Private Physician - When: As needed - Reason: Recheck today's complaints, Re-evaluation by your physician Discharge Instructions: - Discharge Summary Sheet rn - Asthma, Adult rn - Cough, Adult rn Forms: - Medication Reconciliation Form rn - Thank You Letter rn - 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 Day 2, 3, 4 , 5 take one (1) tablet once daily.; 6 tablet; Refills: 0, Product Selection Permitted Signatures: Dispatcher [employer] EDMS Calvin Pope MD MD rn Loubet, Lynsea RN RN ll3 Maria M Deal, RN RN aa9
[2022-03-26 07:28] VITALS: TEMP 98.6
[2022-03-26 07:32] VITALS: BP 132/88; O2SAT 99
--- NOTE | 2022-03-26 12:55 | RAD REPORT ---
EXAM DESCRIPTION: XR Chest 1 View AP CLINICAL HISTORY: Asthma COMPARISON: Chest 2 Views AP PA Lateral 02/02/2022 TECHNIQUE: Chest 1 View AP FINDINGS: Trachea midline. Heart size and pulmonary vessels within normal limits. Mild bilateral perihilar interstitial lung prominence. No focal consolidation or lung mass. No significant pleural effusion or pneumothorax. Bones unremarkable. IMPRESSION: Mild bilateral perihilar interstitial lung prominence. Causes include patient's known asthma. Electronically signed by: Wes Garcia MD 03/26/2022 6:31 AM CAMP DISHWASHER Due to temporary technical issues with the PACS/Fluency reporting system, reports are being signed by the in house radiologists without review as a courtesy to insure prompt reporting. The interpreting radiologist is fully responsible for the content of the report.
== END 2022-03-26 07:22 | disposition home or self-care (01) ==
LOC: ER 05:34
DX: J45.901 Unspecified asthma with (acute) exacerbation (principal); Z20.822 Contact with and (suspected) exposure to COVID-19; Z88.0 Allergy status to penicillin
CPT/HCPCS: 87070; 87081; 0240U; 71045; J7614; J7512; 99284

== ENCOUNTER 2022-08-01 13:12 | Emergency (ER) | payer BC ==
--- OUTSIDE RECORDS SUMMARY | 2022-08-01 13:15 | XMS REPORT | Continuity of Care Document ---
:1995 Author Organization Formerly [facility] t Address [address] [place] [address] Care Team Providers Name Role Phone Redd LEON Attending Clinician Unavailable ELVIRA LERMA Attending Clinician Unavailable Redd LEON Admitting Clinician Unavailable Problems This patient has no known problems. Allergies, Adverse Reactions, Alerts This patient has no known allergies or adverse reactions. Medications This patient has no known medications. Procedures This patient has no known procedures. Encounters Start End Encounter Admission Attending Care Care Encounter Source Date/Time Date/Time Type Type Clinicians Facility Department ID 2022-06-19 2022-06-19 Outpatient [facility] [id number] [place] 16:26:05 16:26:05 [id number] [facility] 1999-11-29 1999-11-30 Inpatient ER [facility] [id number] [place] 14:11:00 18:27:00 Redd -[id number] [facility] 1999-07-23 1999-07-24 Inpatient ER [facility] [id number] [place] 00:45:00 10:30:00 Redd -[id number] [facility] 1998-05-21 1998-05-22 Emergency ER [facility] [id number] [place] 22:25:00 02:20:00 ELVIRA [id number] [facility] Results This patient has no known results.
--- NOTE | 2022-08-01 14:11 | RAD REPORT ---
EXAM DESCRIPTION: RAD - Chest Single View - 08/01/2022 2:05 pm CLINICAL HISTORY: Cough;Congestion Chest pain. COMPARISON: Chest Single View dated 03/26/2022; Chest Single View dated 08/10/2021; Chest Pa And Lat (2 Views) dated 01/16/2018; Chest Pa And Lat (2 Views) dated 07/19/2017 FINDINGS: Portable technique limits examination quality. The lungs are grossly clear. The heart is normal in size. No displaced fractures. IMPRESSION: No acute intrathoracic process suspected.
[2022-08-01] MEDS ORDERED: predniSONE 20 MG TAB ONE (14:32)
[2022-08-01] MEDS ORDERED: LEVALBUTEROL 0.63 MG/3 ML NEB ONE (14:32)
[2022-08-01] MEDS ORDERED: ALBUTEROL 2.5 MG/3 ML NEB SOL ONE (14:32)
--- NOTE | 2022-08-01 15:30 | ER ---
Nurse's Notes [facility] Name: Manish Luis Jr Age: 26 yrs Sex: Male : 1995 Arrival Date: 08/01/2022 Time: 13:12 Bed DIS2 Private MD: Diagnosis: Unspecified asthma with (acute) exacerbation;Acute upper respiratory infection, unspecified Presentation: 08/01 13:40 Chief complaint: Patient states: "I think I have strep but my sinuses are also aa5 bothering me with my asthma". Pt reports itchy throat, cough, congestion. Coronavirus screen: congestion. Ebola Screen: Patient denies travel to an Ebola-affected area in the 21 days before illness onset. Initial Sepsis Screen: Does the patient meet any 2 criteria? No. Patient's initial sepsis screen is negative. Does the patient have a suspected source of infection? No. Patient's initial sepsis screen is negative. Risk Assessment: Do you want to hurt yourself or someone else? Patient reports no desire to harm self or others. Onset of symptoms was July 31, 2022. 13:40 Method Of Arrival: Ambulatory aa5 13:40 Acuity: REYNA 3 aa5 Historical: - Allergies: 13:41 PENICILLINS; aa5 - PMHx: 13:41 Asthma; aa5 Screenin:29 [facility] ED Fall Risk Assessment (Adult) History of falling in the last 3 months, mb9 including since admission No falls in past 3 months (0 pts) Confusion or Disorientation No (0 pts) Intoxicated or Sedated No (0 pts) Impaired Gait No (0 pts) Mobility Assist Device Used No (0 pt) Altered Elimination No (0 pt) Score/Fall Risk Level 0 - 2 = Low Risk Oriented to surroundings, Maintained a safe environment, Educated pt \\T\\ family on fall prevention, incl call for assistance when getting out of bed. Abuse screen: Denies threats or abuse. Nutritional screening: No deficits noted. Tuberculosis screening: No symptoms or risk factors identified. Assessment: 14:28 Pain: Denies pain. Neuro: Level of Consciousness is awake, alert, obeys commands. mb9 Respiratory: Reports cough that is Airway is patent Respiratory effort is even, unlabored, Respiratory pattern is regular, symmetrical, Breath sounds are clear bilaterally. EENT: Throat is reddened. Derm: Skin is pink, warm \\T\\ dry. Musculoskeletal: Range of motion: intact in all extremities. 15:33 Reassessment: Patient and/or family updated on plan of care and expected duration. Pain mb9 level reassessed. Patient is alert, oriented x 3, equal unlabored respirations, skin warm/dry/pink. Patient states feeling better. Patient states symptoms have improved. Vital Signs: 13:40 BP 130 / 87; Pulse 88; Resp 18 S; Temp 97.7(TE); Pulse Ox 99% on R/A; Weight 68.04 kg aa5 (R); Height 5 ft. 9 in. (R); 15:34 BP 128 / 86; Pulse 74; Resp 16; Pulse Ox 100% ; mb9 13:40 Body Mass Index 22.15 (68.04 kg, 175.26 cm) aa5 ED Course: 13:14 Patient arrived in ED. mr 13:16 Bhupinder Newtonistin, [facility]. kb 13:16 Calvin Pope MD is Attending Physician. kb 13:39 Arm band placed on. aa5 13:41 Triage completed. aa5 14:07 Chest Single View XRAY In Process Unspecified. EDMS 14:24 Strep Sent. mb9 14:24 Flu Sent. mb9 14:29 Bed in low position. Call light in reach. Side rails up X 1. Client placed on mb9 continuous cardiac and pulse oximetry monitoring. NIBP monitoring applied. 14:29 No provider procedures requiring assistance completed. Patient did not have IV access mb9 during this emergency room visit. 15:34 Ree Youngblood, RN is Primary Nurse. mb9 Administered Medications: 14:28 Drug: DuoNeb Nebulize (3:1) (2.5 mg - 0.5 mg) 3 ml Route: Nebulizer; mb9 14:28 Drug: predniSONE PO 40 mg Route: PO; mb9 Medication: 14:29 VIS not applicable for this client. mb9 Outcome: 15:29 Discharge ordered by . kb 15:33 Discharged to home ambulatory. mb9 15:33 Condition: stable 15:33 Discharge instructions given to patient, Instructed on discharge instructions, follow up and referral plans. Demonstrated understanding of instructions, follow-up care, medications, Prescriptions given X 1. 15:34 Patient left the ED. mb9 Signatures: Dispatcher [employer] EDEvette Zamudio, EQUITY SALES ASSISTANTTimC EQUITY SALES ASSISTANT-[place] Ree Alyson Howell RN RN aa5 Ree Youngblood RN RN mb9 Corrections: (The following items were deleted from the chart) 13:41 13:40 Pulse 88bpm; Resp 18bpm; Spontaneous; Pulse Ox 99% RA; Temp 97.7F Temporal; 68.04 aa5 kg Reported; Height 5 ft. 9 in. Reported; BMI: 22.1; aa5 13:41 13:40 Acuity: REYNA 4 aa5 aa5
--- NOTE | 2022-08-01 15:30 | EDPHYS ---
Physician Documentation [facility] Name: Manish Luis Jr Age: 26 yrs Sex: Male : 1995 Arrival Date: 08/01/2022 Time: 13:12 Bed DIS2 Private MD: ED Physician Calvin Pope HPI: 08/01 15:42 This 26 yrs old Black Male presents to ER via Ambulatory with complaints of Sore Throat.kb 15:42 The patient presents with sore throat. The patient describes throat pain as constant. kb Onset: The symptoms/episode began/occurred yesterday. Severity of symptoms: At their worst the symptoms were moderate, in the emergency department the symptoms are unchanged. Modifying factors: The symptoms are alleviated by nothing, the symptoms are aggravated by swallowing, Patient's oral intake status: good. Associated signs and symptoms: Pertinent positives: cough, Sore throat. The patient has not experienced similar symptoms in the past. The patient has not recently seen a physician. Pt reports congestion, cough, sore throat and wheezing since yesterday. Denies fever. Historical: - Allergies: 13:41 PENICILLINS; aa5 - PMHx: 13:41 Asthma; aa5 ROS: 15:40 Constitutional: Negative for fever, chills, and weight loss. kb 15:40 ENT: Positive for rhinorrhea, sinus congestion, sore throat. 15:40 Respiratory: Positive for cough, wheezing. 15:40 All other systems are negative. Exam: 15:40 Constitutional: This is a well developed, well nourished patient who is awake, alert, kb and in no acute distress. Head/Face: Normocephalic, atraumatic. ENT: Moist Mucous membranes Cardiovascular: Regular rate and rhythm with a normal S1 and S2. No gallops, murmurs, or rubs. No pulse deficits. Abdomen/GI: Soft, non-tender. No distention Skin: Warm, dry with normal turgor. Normal color. MS/ Extremity: Pulses equal, no cyanosis. Neurovascular intact. Full, normal range of motion. Neuro: Awake and alert, GCS 15, oriented to person, place, time, and situation. Moves all extremities. Normal gait. 15:40 Respiratory: the patient does not display signs of respiratory distress, Respirations: normal, Breath sounds: wheezing: inspiratory expiratory that is mild, is heard diffusely. Vital Signs: 13:40 BP 130 / 87; Pulse 88; Resp 18 S; Temp 97.7(TE); Pulse Ox 99% on R/A; Weight 68.04 kg aa5 (R); Height 5 ft. 9 in. (R); 15:34 BP 128 / 86; Pulse 74; Resp 16; Pulse Ox 100% ; mb9 13:40 Body Mass Index 22.15 (68.04 kg, 175.26 cm) aa5 MDM: 13:22 Patient medically screened. kb 15:41 Differential diagnosis: uri, bronchitis, asthma exacerbation, flu, strep. Data kb reviewed: vital signs, nurses notes. I considered the following discharge prescriptions or medication management in the emergency department I discussed and recommended Over The Counter medications, Antibiotics: At this time antibiotics are not recommended. Counseling: I had a detailed discussion with the patient and/or guardian regarding: the historical points, exam findings, and any diagnostic results supporting the discharge/admit diagnosis, lab results, radiology results, the need for outpatient follow up, a family practitioner, to return to the emergency department if symptoms worsen or persist or if there are any questions or concerns that arise at home. ED course: Pt feeling better after treatment. 08/01 13:42 Order name: Flu; Complete Time: 15:07 kb 08/01 13:42 Order name: Strep 08/01 14:45 Order name: Throat Culture EDNH 08/01 13:42 Order name: Chest Single View XRAY; Complete Time: 14:26 kb Administered Medications: 14:28 Drug: DuoNeb Nebulize (3:1) (2.5 mg - 0.5 mg) 3 ml Route: Nebulizer; mb9 14:28 Drug: predniSONE PO 40 mg Route: PO; mb9 Disposition: 16:11 Co-signature as Attending Physician, Calvin Pope MD. Chart complete. rn Disposition Summary: 08/01/22 15:29 Discharge Ordered Location: Home kb Condition: Stable kb Diagnosis - Unspecified asthma with (acute) exacerbation kb - Acute upper respiratory infection, unspecified kb Followup: kb - With: Emergency Department - When: As needed - Reason: Worsening of condition Followup: kb - With: Private Physician - When: 2 - 3 days - Reason: Recheck today's complaints, Continuance of care, Re-evaluation by your physician Discharge Instructions: - Discharge Summary Sheet kb - Upper Respiratory Infection, Adult, [id number] kb - Asthma, Adult, [id number] kb - Viral Respiratory Infection, [id number] kb Forms: - Medication Reconciliation Form kb - Thank You Letter kb - Antibiotic Education kb - Prescription Opioid Use kb Prescriptions: - Prednisone 20 mg Oral Tablet - take 1 tablet by ORAL route once daily for 5 days; 5 tablet; Refills: 0, kb Product Selection Permitted Signatures: Dispatcher [employer] Evette Rendon, MEMS DEVICE SCIENTIST-C MEMS DEVICE SCIENTIST-Ckb Calvin Pope MD MD rn Alyson Rosenberg, RN RN aa5 Ree Youngblood, RN RN mb9
[2022-08-01 16:03] VITALS: TEMP 97.7
[2022-08-01 16:04] VITALS: BP 128/86; O2SAT 100
== END 2022-08-01 15:34 | disposition home or self-care (01) ==
LOC: ER 13:12
DX: J45.901 Unspecified asthma with (acute) exacerbation (principal); J06.9 Acute upper respiratory infection, unspecified; Z88.0 Allergy status to penicillin
CPT/HCPCS: 87070; 87081; 87804 ×2; 71045; 94640; 99284; J7512; J7613; J7614